=== PATIENT | male | born 1945 | race Caucasian/White ===

== ENCOUNTER → 2017-11-24 08:04 | Outpatient (CLI) | payer MEDICARE, OTHER, SELFPAY ==
[2017-11-24 09:56] LABS: Hematocrit 45.6 % (41-53); Hemoglobin 15.7 g/dL (13.5-17.5); Mean Corpuscular HGB Conc 34.5 % (30-36); Mean Corpuscular Hemoglobin 29.7 PG (26-34); Mean Corpuscular Volume 86.1 fL (80-100); Platelet Count 251 X10^3/uL (150-400); Red Cell Distribution Width 13.6 % (11.6-14.8); White Blood Cell Count 5.7 X10^3/uL (4.5-11.0)
[2017-11-24 10:01] LABS: Alanine Aminotransferase 33 IU/L (21-72); Albumin 4.3 g/dL (3.5-5.0); Albumin Globulin Ratio 1.6 (1.0-2.8); Alkaline Phosphatase 57 U/L (38-126); Amylase 77 U/L (30-110); Aspartate Aminotransferase 27 IU/L (17-59); BUN Creatinine Ratio 16.3 (6-22); Bilirubin Total 0.6 mg/dL (0.2-1.3); Blood Urea Nitrogen 13 mg/dL (9-20); Calcium 9.2 mg/dL (8.4-10.2); Carbon Dioxide 28 mmol/L (22-32); Chloride 99 mmol/L (98-107); Cholesterol 150 mg/dL (140-199); Estimated Glomerular Filt Rate > 60.0 mL/min (>60); Globulin 2.7 g/dL (1.7-4.1); Glucose 90 mg/dL (80-110); HDL Cholesterol 44 mg/dL (40-60); HEMOLYSIS < 15 (0-50); LDL Cholesterol Calculated 94 mg/dL (<100); Lipase 36 U/L (23-300); Potassium 3.9 mmol/L (3.4-5.1); Sodium 137 mmol/L (137-145); Triglycerides 59 mg/dL (35-150)
== END ==
PROVIDERS: Family Provider Family Medicine; PCP Family Medicine; Visit Provider Family Medicine
DX: E78.00 Pure hypercholesterolemia, unspecified (principal); I10 Essential (primary) hypertension; Z79.899 Other long term (current) drug therapy
CPT/HCPCS: 36415; 80053; 80061; 82150; 83690; 85027

== ENCOUNTER → 2018-07-20 07:58 | Outpatient (CLI) | payer MEDICARE, OTHER, SELFPAY ==
[2018-07-20 08:24] LABS: Alanine Aminotransferase 31 IU/L (21-72); Albumin 4.4 g/dL (3.5-5.0); Albumin Globulin Ratio 1.6 (1.0-2.8); Alkaline Phosphatase 54 U/L (38-126); Aspartate Aminotransferase 29 IU/L (17-59); BUN Creatinine Ratio 16.3 (6-22); Bilirubin Total 0.6 mg/dL (0.2-1.3); Blood Urea Nitrogen 13 mg/dL (9-20); Calcium 9.1 mg/dL (8.4-10.2); Carbon Dioxide 27 mmol/L (22-32); Chloride 100 mmol/L (98-107); Cholesterol 150 mg/dL (140-199); Estimated Glomerular Filt Rate > 60.0 mL/min (>60); Globulin 2.8 g/dL (1.7-4.1); Glucose 98 mg/dL (80-110); HDL Cholesterol 46 mg/dL (40-60); HEMOLYSIS < 15 (0-50); LDL Cholesterol Calculated 86 mg/dL (<100); Potassium 4.2 mmol/L (3.4-5.1); Sodium 135 mmol/L (137-145); Total Protein 7.2 g/dL (6.3-8.2); Triglycerides 88 mg/dL (35-150)
[2018-07-20 08:28] LABS: Add Manual Diff / Slide Review NO; Basophils Absolute Auto 0 /uL (0-100); Basophils Percent Auto 0.6 % (0-2); Eosinophils Absolute Auto 400 /uL (0-450); Eosinophils Percent Auto 7.5 % (2-4); Hematocrit 46.9 % (41-53); Lymphocytes Absolute Auto 1800 /uL (1100-4500); Lymphocytes Percent Auto 31.3 % (25-40); Mean Corpuscular HGB Conc 34.1 % (30-36); Mean Corpuscular Hemoglobin 29.9 PG (26-34); Mean Corpuscular Volume 87.5 fL (80-100); Monocytes Absolute Auto 500 /uL (0-900); Monocytes Percent Auto 9.3 % (3-14); Neutrophils Absolute Auto 3000 /uL (1500-7000); Neutrophils Percent Auto 51.3 % (50-75); Platelet Count 236 X10^3/uL (150-400); Red Blood Cell Count 5.36 X10^6/uL (4.5-5.9); Red Cell Distribution Width 13.3 % (11.6-14.8); White Blood Cell Count 5.8 X10^3/uL (4.5-11.0)
[2018-07-20 08:54] LABS: Prostate Specific Antigen Scrn 2.61 ng/mL (0.1-4.0)
== END ==
PROVIDERS: PCP Family Medicine; Visit Provider Family Medicine
DX: E78.00 Pure hypercholesterolemia, unspecified (principal); I10 Essential (primary) hypertension; K85.90 Acute pancreatitis without necrosis or infection, unspecified; Z12.5 Encounter for screening for malignant neoplasm of prostate; Z79.899 Other long term (current) drug therapy
CPT/HCPCS: 36415; 80053; 80061; 85025; G0103

== ENCOUNTER → 2018-12-29 07:07 | Outpatient (CLI) | payer MEDICARE, OTHER, SELFPAY ==
[2018-12-29 09:16] LABS: Alanine Aminotransferase 24 IU/L (21-72); Albumin 4.1 g/dL (3.5-5.0); Albumin Globulin Ratio 1.6 (1.0-2.8); Alkaline Phosphatase 53 U/L (38-126); Aspartate Aminotransferase 28 IU/L (17-59); BUN Creatinine Ratio 17.5 (6-22); Bilirubin Total 0.6 mg/dL (0.2-1.3); Blood Urea Nitrogen 14 mg/dL (9-20); Calcium 9.3 mg/dL (8.4-10.2); Carbon Dioxide 27 mmol/L (22-32); Chloride 100 mmol/L (98-107); Cholesterol 150 mg/dL (140-199); Estimated Glomerular Filt Rate > 60.0 mL/min (>60); Globulin 2.6 g/dL (1.7-4.1); Glucose 88 mg/dL (80-110); HDL Cholesterol 51 mg/dL (40-60); HEMOLYSIS < 15 (0-50); LDL Cholesterol Calculated 85 mg/dL (<100); Potassium 4.7 mmol/L (3.4-5.1); Sodium 136 mmol/L (137-145); Total Protein 6.7 g/dL (6.3-8.2); Triglycerides 68 mg/dL (35-150)
== END ==
PROVIDERS: PCP Family Medicine; Visit Provider Family Medicine
DX: K85.90 Acute pancreatitis without necrosis or infection, unspecified (principal); M12.89 Other specific arthropathies, not elsewhere classified, multiple sites; I10 Essential (primary) hypertension; E78.00 Pure hypercholesterolemia, unspecified; K86.9 Disease of pancreas, unspecified
CPT/HCPCS: 36415; 80053; 80061

== ENCOUNTER → 2020-04-02 11:26 | Outpatient (CLI) | payer MEDICARE, OTHER, SELFPAY ==
[2020-04-02 12:37] LABS: Add Manual Diff / Slide Review NO; Basophils Absolute Auto 0 /uL (0-100); Basophils Percent Auto 0.4 % (0-2); Eosinophils Absolute Auto 200 /uL (0-450); Eosinophils Percent Auto 3.5 % (2-4); Hematocrit 45.3 % (41-53); Hemoglobin 15.4 g/dL (13.5-17.5); Lymphocytes Absolute Auto 1400 /uL (1100-4500); Lymphocytes Percent Auto 21.2 % (25-40); Mean Corpuscular HGB Conc 33.9 % (30-36); Mean Corpuscular Hemoglobin 29.7 PG (26-34); Mean Corpuscular Volume 87.6 fL (80-100); Monocytes Absolute Auto 400 /uL (0-900); Monocytes Percent Auto 6.4 % (3-14); Neutrophils Absolute Auto 4400 /uL (1500-7000); Neutrophils Percent Auto 68.5 % (50-75); Platelet Count 218 X10^3/uL (150-400); Red Blood Cell Count 5.17 X10^6/uL (4.5-5.9); Red Cell Distribution Width 13.8 % (11.6-14.8); White Blood Cell Count 6.5 X10^3/uL (4.5-11.0)
[2020-04-02 13:12] LABS: Alanine Aminotransferase 23 IU/L (<50); Albumin 4.3 g/dL (3.5-5.0); Albumin Globulin Ratio 1.5 (1.0-2.8); Alkaline Phosphatase 62 U/L (38-126); Amylase 83 U/L (30-110); Aspartate Aminotransferase 34 IU/L (17-59); BUN Creatinine Ratio 15.7 (6-22); Bilirubin Total 0.7 mg/dL (0.2-1.3); Blood Urea Nitrogen 13 mg/dL (9-20); Calcium 9.2 mg/dL (8.4-10.2); Carbon Dioxide 30 mmol/L (22-32); Chloride 103 mmol/L (98-107); Cholesterol 158 mg/dL (140-199); Estimated Glomerular Filt Rate > 60.0 mL/min (>60); Globulin 2.9 g/dL (1.7-4.1); Glucose 94 mg/dL (80-110); HDL Cholesterol 46 mg/dL (40-60); HEMOLYSIS < 15 (0-50); LDL Cholesterol Calculated 96 mg/dL (<100); Lipase 42 U/L (23-300); Potassium 4.5 mmol/L (3.4-5.1); Sodium 137 mmol/L (137-145); Total Protein 7.2 g/dL (6.3-8.2); Triglycerides 80 mg/dL (35-150)
[2020-04-02 13:34] LABS: TSH w/ Reflex to FT4 3.38 uIU/mL (0.47-4.68)
== END ==
PROVIDERS: PCP Family Medicine; Referring Provider Family Medicine; Visit Provider Family Medicine
DX: I10 Essential (primary) hypertension (principal); K86.3 Pseudocyst of pancreas; R19.7 Diarrhea, unspecified; E78.00 Pure hypercholesterolemia, unspecified; Z79.899 Other long term (current) drug therapy; N40.0 Benign prostatic hyperplasia without lower urinary tract symptoms
CPT/HCPCS: 36415; 80053; 80061; 82150; 83690; 84443; 85025

== ENCOUNTER → 2020-09-06 09:10 | Outpatient (CLI) | payer MEDICARE, OTHER, SELFPAY ==
[2020-09-06 11:42] LABS: COVID19 -Nasal RAPID Negative (Negative)
== END ==
PROVIDERS: PCP Family Medicine; Visit Provider Specialist
DX: Z20.822 Contact with and (suspected) exposure to COVID-19 (principal)
CPT/HCPCS: 87635; C9803

== ENCOUNTER 2020-09-07 08:03 | Day surgery (SDC) | payer MEDICARE, OTHER, SELFPAY ==
--- NOTE | 2020-09-07 | PATH_ITS ---
[facility] Accession Number: [id number] . 01 Material submitted: . PART A: colon - ASCENDING COLON POLYP PART B: colon - POLYPS AT 25CM (3) . 02 Diagnosis: A. Ascending Colon Polyp, Biopsy: Sessile serrated adenoma. . B. Colon Polyps at 25 cm, Biopsies: Fragments of tubular adenoma and fragments of colonic mucosa with moderate active colitis, most consistent with inflammatory polyp (three polyps removed). V 09/11/2020 1213 Local . 02 Electronically signed: . Surjit Fuentes MD, PhD, Pathologist NPI- [id number] . 01 Gross description: . A. The specimen is received in formalin, labeled ascending colon polyp, and consists of multiple souza-pink fragments of soft tissue measuring 1.5 x 1.2 x 0.3 cm in aggregate. The specimen is filtered and entirely submitted in cassette A1. B. The specimen is received in formalin, labeled polyp at 25 cm, and consists of multiple souza-pink fragments of soft tissue measuring 1.0 x 1.0 x 0.2 cm in aggregate. The specimen is filtered and entirely submitted in cassette B1. ([id number]) /Raquel 09/08/2020 1452 Local . 02 Pathologist provided ICD-10: D12.2, D12.6, K51.40 . 02 CPT . 942661, 118898 Performed at: 01 [facility] [address] [place] [address], [place], [place] [id number] MD Ashok Giles MD Phone: [phone] Performed at: 02 [facility] [address] [place], [place] [id number] Swenson MD Phone: [phone]
[2020-09-07 08:32] VITALS: BP 135/71; PULSE 69; RESP 14; TEMP 36.4; O2SAT 97; BMI 25.5
[2020-09-07] MEDS: LACTATED RINGERS 1,000 ML 200 ML IV (08:32)
--- NOTE | 2020-09-07 09:45 | PM.HP.1 ---
History of Present Illness History of Present Illness Date Patient Seen: 09/07/20 Time Patient Seen: 09:45 Chief complaint: SCREENING COLONOSCOPY Narrative: Patient is a gentleman who had polyps removed at his last colonoscopy. Is been 5 years since his last exam. He is here for screening exam. He has noticed that he has been having very soft but not liquid stool for the last 2 years. Patient History Family & Social History Social History: household members spouse Tobacco & Substance use: Smoking Status Former smoker alcohol intake current alcohol intake frequency 0-2 drinks per day Substance Use Type does not use Meds Home Medications and Allergies Home Medications Medication Instructions Recorded Confirmed Type multivitamin [Multiple Vitamins] 1 tab PO QDAY #0 06/12/16 09/07/20 History sodium,potassium,mag sulfates 17.5 177 ml PO DAILY #354 ml 08/17/20 09/07/20 Rx gram-3.13 gram-1.6 gram oral soln acetaminophen [Tylenol] 325 mg PO QID PRN 09/07/20 09/07/20 History atorvastatin 10 mg PO DAILY 09/07/20 09/07/20 History Allergies Allergy/AdvReac Type Severity Reaction Status Date / Time No Known Drug Allergies Allergy Verified 09/07/20 08:28 Review of Systems Review of Systems ROS: Yes All systems reviewed with the patient and are negative except as otherwise documented Exam Vital Signs (past 8 hours): - 09/07/20 08:32 Temperature 97.5 F L Pulse Rate 69 Respiratory Rate 14 Blood Pressure 135/71 Pulse Oximetry 97 Oxygen Delivery Method Room Air Narrative Exam Narrative: Pleasant cooperative patient no apparent distress. Lungs are clear to auscultation. No rales or rhonchi. Heart regular rate and rhythm no murmur gallop. Abdomen is soft nontender without mass. No obvious hernias. Patient is alert and oriented x3. Assessment & Plan Assessment & Plan narrative: The patient for a screening colonoscopy. I have discussed the procedure with them. Risks of bleeding, perforation which would necessitate major operation, failure to find remove all lesions, the potential tattoo were all discussed. All questions were answered. They wished to proceed.
--- NOTE | 2020-09-07 09:47 | PM.PREOP ---
Pre-operative Note COVID-19 COVID-19 status: Negative Result date/Date tested (Pos, Neg/Pending): 09/06/20 Interval Note History & Physical reviewed/Exam performed by Physician: Yes Changes to H&P: No ASA Class (for procedural sedation): I
--- NOTE | 2020-09-07 10:55 | PM.OP.ENDO ---
Operative Date/Time/Diagnoses Date of procedure: 09/07/20 Time of procedure: 10:55 Pre-op diagnosis: Screening exam. Last exam 5 years ago. Personal history of polyps. Post-op diagnosis: same (Multiple polyps. Sigmoid diverticulosis occasional.) Procedure & Clinicians Study performed: Colonoscopy with hot polypectomy and cold biopsy Same procedure as scheduled: Yes Indications: Screening in high risk patient Surgeon: Chris Rizzo Procedure Notes SCOAP/Timeout: Performed Procedure in detail: The patient was placed in the left lateral decubitus position and underwent IV sedation directed by the surgeon consisting of fentanyl and Versed. Digital exam was unremarkable. Prostate was not enlarged.. The scope was inserted and advanced through the rectum into the sigmoid, descending, transverse, and ascending colon. Pressure was applied to make our way into the cecum.. The cecum was reached identified by the ileocecal valve and the appendiceal opening. . The scope was gradually brought out. About 4 or 5 cm outside the ileocecal valve there was a rather large flat polyp which was removed in pieces. I cauterized edges. Additional Polyps were found at 25 cm from the anal verge. Cold biopsy forceps was used removed 2 and an additional 1 was snared.. The scope ultimately was retroflexed in the rectum. The appearance was normal. The scope was removed and the patient tolerated the procedure well. Prep was very good Scope withdrawal time: 8 minutes((39 total) Sedation minutes: 52 Findings: diverticulosis and polyp Specimen(s): other (Polyps) Complications: none Post-procedure Recommendations: Colonscopy in 1 year (To ensure flat lesion in the ascending colon was completely removed.) Follow up: as needed Disposition: PACU
[2020-09-07] MEDS: fentaNYL 250 MCG/5 ML INJ IV (10:56)
[2020-09-07] MEDS: MIDAZOLAM 5 MG/5 ML VIAL IV (10:57)
[2020-09-07 11:03] VITALS: BP 122/59; PULSE 60; RESP 13; O2SAT 98
[2020-09-07 11:12] VITALS: BP 143/85; PULSE 85; RESP 10; TEMP 36.9; O2SAT 98
--- NOTE | 2020-09-07 11:18 | SUR.PHASEI ---
1058 - Admitted to PACU after colonscopy with sedation. Report from THADDEUS Leal.
[2020-09-07 11:27] VITALS: BP 141/84; PULSE 79; RESP 16; TEMP 36.9; O2SAT 97
--- NOTE | 2020-09-07 11:29 | SUR.PHASEII ---
d/c instructions done by THADDEUS Roman. Pt ready to go, called, tolerating liquids, belly soft, left unit in stable condition.
== END 2020-09-07 11:30 | disposition home or self-care (01) ==
PROVIDERS: PCP Family Medicine; Referring Provider Specialist; Visit Provider Specialist
PROC: 0DJD8ZZ Inspection of Lower Intestinal Tract, Via Natural or Artificial Opening Endoscopic (ICD-10-PCS; CPT 45378; principal; 2020-09-07 09:15)
DX: Z12.11 Encounter for screening for malignant neoplasm of colon (principal); Z86.010 Personal history of colon polyps; K57.30 Diverticulosis of large intestine without perforation or abscess without bleeding; D12.6 Benign neoplasm of colon, unspecified
CPT/HCPCS: 45385; 45380; 99152; 99153; J2250; J3010

== ENCOUNTER → 2020-12-31 14:40 | Outpatient (CLI) | payer MEDICARE, OTHER, SELFPAY ==
--- NOTE | 2020-12-31 | DI.RAD.S_ITS ---
PROCEDURE: XR CHEST 2V INDICATIONS: chest pain TECHNIQUE: 2 views of the chest were acquired. COMPARISON: [facility], , CHEST 2 VIEW, 07/06/2016, 16:31. FINDINGS: Surgical changes and devices: None. Lungs and pleura: Lungs are clear. No pleural effusions or pneumothorax. Mediastinum: Mediastinal contours are normal. Heart size is normal. Bones and chest wall: No suspicious bony abnormalities. Soft tissues appear unremarkable. IMPRESSION: No source for chest pain identified radiographically. Dictated by: Sauol So RR Interpreted: Cj De Leon MD on 12/31/2020 at 16:57 Transcribed by: RUSTAM on 12/31/2020 at 16:58 Approved by: Cj De Leon M.D. on 12/31/2020 at 17:14
== END ==
PROVIDERS: PCP Family Medicine; Referring Provider Family Medicine; Visit Provider Family Medicine
DX: I10 Essential (primary) hypertension (principal); R07.9 Chest pain, unspecified
CPT/HCPCS: 71046

== ENCOUNTER → 2021-01-17 12:42 | Outpatient (CLI) | payer MEDICARE, OTHER, SELFPAY ==
--- NOTE | 2021-01-17 12:46 | DI.CT.S_ITS ---
PROCEDURE: CT HEAD/BRAIN WO CON INDICATIONS: Dizziness and giddiness TECHNIQUE: Noncontrast 4.5 mm thick angled axial sections acquired from the foramen magnum to the vertex, with coronal and sagittal reformats. For radiation dose reduction, the following was used: automated exposure control, adjustment of mA and/or kV according to patient size. COMPARISON: [facility], , MRI BRAIN (IAC) W/WO CONTRAST, 09/23/2005, 7:52. FINDINGS: Image quality: Excellent. CSF spaces: Basal cisterns are patent. No extra-axial fluid collections. The ventricles are symmetric in size and shape. Brain: No intracranial bleeds or masses. There is cerebral volume loss for age, with resultant ventricular and sulcal prominence. There are periventricular and deep white matter chronic small vessel ischemic changes. Scattered lacunar infarcts are seen. There is intracranial internal carotid artery atherosclerosis. Skull and face: Calvarium and visualized facial bones appear intact, without suspicious lesions. Sinuses: Visualized sinuses and mastoids are clear. IMPRESSION: Unremarkable intracranial study for age, without an imaging explanation found for the patient's presenting history. If it would be helpful for clinical management decision making, please consider a dedicated brain MRI (without and with contrast) for further evaluation (assuming that there is no contraindication). Dictated by: Delvin Sheridan M.D. on 01/17/2021 at 12:13 Approved by: Delvin Sheridan M.D. on 01/17/2021 at 12:14
--- NOTE | 2021-01-17 12:47 | DI.US.S_ITS ---
PROCEDURE: US CAROTID DOPPLER BI INDICATIONS: DIZZINESS TECHNIQUE: Color and pulse Doppler interrogation was performed of both carotid systems, with image documentation and velocity measurements. COMPARISON: [facility], US, CAROTID ARTERY DOPPLER BILAT, 02/20/2012, 10:50. [facility], CT, CT HEAD/BRAIN WO CON, 01/17/2021, 13:06. FINDINGS: Stenosis calculations are based on SRU (Society of Radiologists in Ultrasound) criteria. The flow velocities and the arterial waveforms are normal within both carotid arterial systems. A small amount of atherosclerotic plaque is seen on both sides. The estimated degree of internal carotid artery stenosis is less than 50%. Antegrade flow is confirmed within both vertebral arteries. IMPRESSION: No hemodynamically significant stenosis is seen. No significant change is seen. Dictated by: Delvin Sheridan M.D. on 01/17/2021 at 12:40 Approved by: Delvin Sheridan M.D. on 01/17/2021 at 12:41
== END ==
PROVIDERS: PCP Family Medicine; Referring Provider Family Medicine; Visit Provider Family Medicine
DX: R42 Dizziness and giddiness (principal)
CPT/HCPCS: 70450; 93880

== ENCOUNTER → 2021-01-25 08:28 | Outpatient (CLI) | payer MEDICARE, OTHER, SELFPAY ==
--- NOTE | 2021-01-25 | DI.MRI.S_ITS ---
PROCEDURE: MR HEAD/BRAIN WO/W CON INDICATIONS: Dizziness and giddiness TECHNIQUE: Noncontrast axial T1 spin echo, axial T2 fast spin echo, sagittal and axial FLAIR, coronal T2 fast spin echo, axial gradient echo, axial diffusion and ADC through the brain. After the administration of contrast, axial and coronal T1 spin echo with fat saturation through the brain. COMPARISON: [facility], RG, MRI BRAIN (IAC) W/WO CONTRAST, 09/23/2005, 7:52. [facility], CT, CT HEAD/BRAIN WO CON, 01/17/2021, 13:06. FINDINGS: Image quality: Excellent. CSF spaces: Basal cisterns are patent. No extra-axial fluid collections. Ventricles are normal in size and shape. Brain: No midline shift. No intracranial bleeds or masses. No abnormal intracranial enhancement. There is cerebral volume loss for age. There is periventricular white matter chronic small vessel ischemic change. The brainstem appears normal. Diffusion-weighted images demonstrate no acute ischemic insults. No chronic ischemic insults. Normal intravascular flow voids are present. Skull and face: Calvarial marrow is normal in signal. Orbits appear normal. Sinuses: Mild mucosal thickening is seen involving the maxillary sinuses. Mild mucosal thickening is also seen within the ethmoid air cells. Minimal mucosal thickening is seen elsewhere within the paranasal sinuses. No abnormal fluid is seen within the mastoid air cells. IMPRESSION: No masses or abnormal enhancement can be seen. No findings of acute or subacute infarction can be seen. Note is made of age-appropriate brain parenchymal volume loss and chronic small vessel ischemic changes. Dictated by: Delvin Sheridan M.D. on 01/25/2021 at 9:53 Approved by: Delvin Sheridan M.D. on 01/25/2021 at 9:55
== END ==
PROVIDERS: PCP Family Medicine; Referring Provider Family Medicine; Visit Provider Family Medicine
DX: R42 Dizziness and giddiness (principal); R90.89 Other abnormal findings on diagnostic imaging of central nervous system
CPT/HCPCS: 70553

== ENCOUNTER → 2022-01-23 09:15 | Outpatient (CLI) | payer MEDICARE, OTHER, SELFPAY ==
[2022-01-23 11:28] LABS: COVID19 -Nasal RAPID Negative (Negative)
== END ==
PROVIDERS: PCP Family Medicine; Visit Provider Surgery
DX: Z01.812 Encounter for preprocedural laboratory examination (principal); Z20.822 Contact with and (suspected) exposure to COVID-19
CPT/HCPCS: 87635; C9803

== ENCOUNTER 2022-01-24 07:24 | Day surgery (SDC) | payer MEDICARE, OTHER, SELFPAY ==
--- NOTE | 2022-01-24 | PATH_ITS ---
[facility] Accession Number: [id number] . 01 Material submitted: . colon - CECAL POLYPS . 01 Diagnosis: Cecum, Polyps, Biopsies: Multiple fragments of enteric mucosa with sumucosal mature adipose tissue, consistent with benign lipoma. Additional levels were examined. Negative for atypia, epithelial dysplasia, or malignancy. [facility] 01/31/2022 1327 Local . 01 Electronically signed: . Glendy Swenson MD, Pathologist NPI- [id number] . 01 Gross description: . CECAL POLYPS: Received in formalin are multiple fragment(s) of souza, soft tissue measuring 0.1 x 0.1 x 0.1 cm to 0.7 x 0.6 x 0.5 cm submitted entirely in 1 cassette(s) /REYES 01/29/2022 1937 Local . 01 Pathologist provided ICD-10: K63.5, Z86.010 . 01 CPT . 450338 Performed at: 01 [facility] [address] [place] [address] [address], [place], [place] [id number] MD Ashok Giles MD Phone: [phone]
[2022-01-24 07:48] VITALS: BP 133/80; PULSE 78; RESP 16; TEMP 36.3; O2SAT 98; BMI 26.6
[2022-01-24] MEDS: LACTATED RINGERS 1,000 ML 100 ML IV ×2 (08:00→10:41)
[2022-01-24] MEDS: fentaNYL 100 MCG/2 ML INJ IV (09:02)
[2022-01-24] MEDS: MIDAZOLAM 5 MG/5 ML VIAL IV (09:02)
--- NOTE | 2022-01-24 09:09 | PM.HP.1 ---
History of Present Illness History of Present Illness Chief complaint: DX COLONOSCOPY Narrative: Mr. Sexton is a 76-year-old relatively healthy male who had a large cecal polyp removed 1 year ago he also had some small rectal polyps both of which were adenomatous. He has a 44-year-old daughter who was recently diagnosed with colon cancer. He denies any other symptoms no bleeding regular bowel movements. He had no issues with his previous colonoscopy other than relating that he ?goes under anesthesia easily? Patient History Surgical History H/O vasectomy History of total hip replacement Hx of tonsillectomy Family & Social History Social History: household members spouse Tobacco & Substance use: Smoking Status Former smoker alcohol intake current alcohol intake frequency 0-2 drinks per day Substance Use Type does not use Meds Home Medications and Allergies Home Medications Medication Instructions Recorded Confirmed Type multivitamin (Multiple Vitamins 1 tab PO QDAY ##0 06/12/16 01/24/22 History tablet) acetaminophen 325 mg capsule 325 mg PO QID PRN Headache 09/07/20 01/24/22 History (Tylenol) atorvastatin 10 mg tablet 10 mg PO DAILY 09/07/20 01/24/22 History amlodipine 5 mg tablet See Rx Instructions .Route .COMPLEX 01/24/22 01/24/22 History Allergies Allergy/AdvReac Type Severity Reaction Status Date / Time No Known Drug Allergies Allergy Verified 01/24/22 07:44 Exam Vital Signs (past 8 hours): - 01/24/22 07:48 Temperature 97.4 F L Pulse Rate 78 Respiratory Rate 16 Blood Pressure 133/80 Pulse Oximetry 98 Oxygen Delivery Method Room Air Oxygen Delivery Method Room Air Const General: cooperative, healthy appearing and comfortable [facility] Head: normal to inspection Eyes General: appearance normal, both eyes and all related structures Neck Neck: normal visual inspection Resp Effort & Inspection: normal respiratory effort and able to speak in complete sentences Cardio Rhythm: regular rhythm GI Inspection: normal to inspection Skin General: no rashes or lesions noted Extrem General: normal to inspection Assessment & Plan Assessment and plan (1) Screening for colon cancer: Status: Acute Plan I discussed risks benefits and alternatives as well as the results from his previous colonoscopy. Mr. Sexton understood the risks and would like to proceed today. Time Spent With Patient Time with patient: less than 30 minutes Critical Care time: I spent a total of [] minutes of critical care time on this patient's care today; this time is exclusive of procedural time.
[2022-01-24 10:56] VITALS: BP 130/91; PULSE 74; RESP 16; TEMP 37.2; O2SAT 96
[2022-01-24 10:58] VITALS: BP 130/71; PULSE 711; RESP 16; O2SAT 98
[2022-01-24 11:03] VITALS: BP 125/72; PULSE 71; RESP 16; TEMP 36.7; O2SAT 97
[2022-01-24 11:13] VITALS: BP 125/72; PULSE 71; RESP 16; TEMP 36.7; O2SAT 100
[2022-01-24 11:35] VITALS: BP 144/74; PULSE 69; RESP 18; O2SAT 97
--- NOTE | 2022-01-24 12:01 | PM.OP.COLON ---
Operative Date/Time/Diagnoses Date of procedure: 01/24/22 Pre-op diagnosis: Screening, follow-up polypectomy Post-op diagnosis: same Procedure & Clinicians Study performed: Colonoscopy and biopsy Same procedure as scheduled: Yes Surgeon: My Goel Procedure Notes Procedure in detail: Mr. Sexton was taken to the endoscopy suite and placed in left lateral decubitus position. Time-out was performed conscious sedation was provided with a total of 125 mcg of fentanyl and 6 mg of Versed over the course of the procedure. A digital rectal exam was performed and normal the scope was introduced and advanced. Some abdominal pressure was required to complete the hepatic flexure. The cecum was reached and photographs were taken of the appendiceal orifice. Immediately adjacent to the ileocecal valve there was a large sessile polyp seen there. Based on measurement against the size of the the loop it was 1.3 cm in size. I used a hot polypectomy snare to remove this lesion in several pieces. I used electrocautery for hemostasis. After I had taken 4 separate pieces, I used the biopsy forceps to remove some areas around the edge in addition. Of note in the ascending colon on the way in to the cecum there was a small polyp, which I did not see clearly on the way out. Withdrawal time was 60 minutes and included the time spent removing the cecal polyp. However extra care was taken at around 25 cm at the site of previous biopsies and no additional polyps were seen at this site. Due to the size of the cecal polyp and his history I think we should return in 1 year to check this polyp again. For this reason I did not use more anesthetic time to seek the other small polyp I saw in the ascending colon. Scope withdrawal time: 61 Sedation minutes: 90 Findings: divertiulosis and polyp(s) Specimen(s): other (Cecal polyp) Post-procedure Recommendations: Colonoscopy in 1 year Disposition: PACU
== END 2022-01-24 11:35 | disposition home or self-care (01) ==
PROVIDERS: PCP Family Medicine; Referring Provider Surgery; Visit Provider Surgery
PROC: 0DJD8ZZ Inspection of Lower Intestinal Tract, Via Natural or Artificial Opening Endoscopic (ICD-10-PCS; CPT 45378; principal; 2022-01-24 08:45)
DX: Z12.11 Encounter for screening for malignant neoplasm of colon (principal); Z86.010 Personal history of colon polyps; Z80.0 Family history of malignant neoplasm of digestive organs; K57.30 Diverticulosis of large intestine without perforation or abscess without bleeding; D17.5 Benign lipomatous neoplasm of intra-abdominal organs
CPT/HCPCS: 45385; 99152; 99153; J2250; J3010

== ENCOUNTER → 2022-05-20 07:22 | Outpatient (CLI) | payer MEDICARE, OTHER, SELFPAY ==
[2022-05-20 08:04] LABS: Add Manual Diff / Slide Review NO; Basophils Absolute Auto 0 /uL (0-100); Basophils Percent Auto 0.6 % (0-2); Eosinophils Absolute Auto 400 /uL (0-450); Eosinophils Percent Auto 5.6 % (2-4); Hematocrit 44.2 % (41-53); Hemoglobin 15.1 g/dL (13.5-17.5); Lymphocytes Absolute Auto 1800 /uL (1100-4500); Lymphocytes Percent Auto 27.5 % (25-40); Mean Corpuscular HGB Conc 34.2 % (30-36); Mean Corpuscular Hemoglobin 29.2 PG (26-34); Mean Corpuscular Volume 85.4 fL (80-100); Monocytes Absolute Auto 500 /uL (0-900); Monocytes Percent Auto 8.4 % (3-14); Neutrophils Absolute Auto 3700 /uL (1500-7000); Neutrophils Percent Auto 57.9 % (50-75); Platelet Count 243 X10^3/uL (150-400); Red Blood Cell Count 5.17 X10^6/uL (4.5-5.9); Red Cell Distribution Width 13.5 % (11.6-14.8); White Blood Cell Count 6.4 X10^3/uL (4.5-11.0)
[2022-05-20 08:31] LABS: Alanine Aminotransferase 27 IU/L (<50); Alkaline Phosphatase 67 U/L (38-126); Amylase 78 U/L (30-110); Aspartate Aminotransferase 30 IU/L (17-59); Bilirubin Total 0.6 mg/dL (0.2-1.3); Blood Urea Nitrogen 12 mg/dL (9-20); Calcium 8.9 mg/dL (8.4-10.2); Carbon Dioxide 29 mmol/L (22-32); Chloride 101 mmol/L (98-107); Cholesterol 146 mg/dL (140-199); Estimated Glomerular Filt Rate > 60 mL/min (>60); Glucose 93 mg/dL (80-110); HDL Cholesterol 39 mg/dL (40-60); LDL Cholesterol Calculated 91 mg/dL (<100); Lipase 61 U/L (23-300); Magnesium 2.1 mg/dL (1.6-2.3); Potassium 4.4 mmol/L (3.4-5.1); Sodium 136 mmol/L (137-145); Total Protein 7.3 g/dL (6.3-8.2); Triglycerides 79 mg/dL (35-150)
[2022-05-20 08:47] LABS: Vitamin D 25 Hydroxy (D3) 44.9 ng/mL (30.0-100.0)
[2022-05-20 09:00] LABS: Thyroid Stimulating Hormone 5.39 uIU/mL (0.47-4.68)
[2022-05-21 03:14] LABS: Vitamin B12 577 pg/mL (239-931)
[2022-05-23 15:57] LABS: Albumin 4.2 g/dL (3.5-5.0); Albumin Globulin Ratio 1.4 (1.0-2.8); Globulin 3.1 g/dL (1.7-4.1); HEMOLYSIS 15 (0-50)
== END ==
PROVIDERS: PCP Family Medicine; Referring Provider Family Medicine; Visit Provider Family Medicine
DX: I10 Essential (primary) hypertension (principal); Z12.5 Encounter for screening for malignant neoplasm of prostate; I48.91 Unspecified atrial fibrillation; E78.00 Pure hypercholesterolemia, unspecified; K86.3 Pseudocyst of pancreas; M12.89 Other specific arthropathies, not elsewhere classified, multiple sites; Z79.899 Other long term (current) drug therapy
CPT/HCPCS: 36415; 80053; 80061; 82150; 82306; 82607; 83690; 83735; 84153; 84443; 85025; G0103

== ENCOUNTER → 2022-06-17 09:57 | Outpatient (CLI) | payer MEDICARE, OTHER, SELFPAY ==
[2022-06-17 11:23] LABS: T4 Total Thyroxine 6.48 ug/dL (5.5-11.0); T7 (Free Thyroxine Index) 2.27 (1.65-3.89)
[2022-06-17 11:37] LABS: Thyroid Stimulating Hormone 3.95 uIU/mL (0.47-4.68)
== END ==
PROVIDERS: PCP Family Medicine; Referring Provider Family Medicine; Visit Provider Family Medicine
DX: I10 Essential (primary) hypertension (principal); Z79.899 Other long term (current) drug therapy; E78.00 Pure hypercholesterolemia, unspecified; K85.90 Acute pancreatitis without necrosis or infection, unspecified
CPT/HCPCS: 36415; 84436; 84443; 84479

== ENCOUNTER 2022-10-26 18:51 | Inpatient (IN) | payer MEDICARE, OTHER, SELFPAY ==
[2022-10-26 19:18] VITALS: BP 136/81; PULSE 113; RESP 20; TEMP 36.9; O2SAT 98; BMI 26.6
[2022-10-26] MEDS: ONDANSETRON 4 MG/2 ML INJ IV (19:45)
[2022-10-26 19:49] LABS: Add Manual Diff / Slide Review NO; Basophils Absolute Auto 0 /uL (0-100); Basophils Percent Auto 0.3 % (0-2); Eosinophils Absolute Auto 100 /uL (0-450); Eosinophils Percent Auto 0.9 % (2-4); Hematocrit 46.8 % (41-53); Hemoglobin 16.3 g/dL (13.5-17.5); Lymphocytes Absolute Auto 1700 /uL (1100-4500); Lymphocytes Percent Auto 11.5 % (25-40); Mean Corpuscular HGB Conc 34.9 % (30-36); Mean Corpuscular Hemoglobin 29.6 PG (26-34); Mean Corpuscular Volume 84.8 fL (80-100); Monocytes Absolute Auto 1000 /uL (0-900); Monocytes Percent Auto 6.6 % (3-14); Neutrophils Absolute Auto 11600 /uL (1500-7000); Neutrophils Percent Auto 80.7 % (50-75); Platelet Count 280 X10^3/uL (150-400); Red Blood Cell Count 5.52 X10^6/uL (4.5-5.9); Red Cell Distribution Width 13.8 % (11.6-14.8); White Blood Cell Count 14.4 X10^3/uL (4.5-11.0)
--- NOTE | 2022-10-26 19:57 | PC.NURSE ---
After starting the IV, patient became nauseous went to [facility] for patient and when returned patient was ambulating to the bathroom, unsteady on feet and diaphoretic. Pt reports feeling dizzy. Had patient sit on toilet to give the sample, Upon returning to chair checked, stated feeling better but still alittle dizzy. BP at this time 101/54. Provider aware. Pt denies any previous similar responses to lab draw or IV starts.
[2022-10-26 20:01] LABS: Alanine Aminotransferase 27 IU/L (<50); Albumin 4.2 g/dL (3.5-5.0); Albumin Globulin Ratio 1.4 (1.0-2.8); Alkaline Phosphatase 69 U/L (38-126); Aspartate Aminotransferase 36 IU/L (17-59); BUN Creatinine Ratio 20.8 (6-22); Bilirubin Total 0.7 mg/dL (0.2-1.3); Blood Urea Nitrogen 15 mg/dL (9-20); Calcium 9.4 mg/dL (8.4-10.2); Carbon Dioxide 22 mmol/L (22-32); Chloride 102 mmol/L (98-107); Estimated Glomerular Filt Rate > 60 mL/min (>60); Globulin 3.1 g/dL (1.7-4.1); Glucose 114 mg/dL (80-110); Potassium 3.9 mmol/L (3.4-5.1); Sodium 133 mmol/L (137-145); Total Protein 7.3 g/dL (6.3-8.2)
[2022-10-26 20:08] LABS: HEMOLYSIS 45 (0-50)
[2022-10-26 20:23] VITALS: BP 140/78; PULSE 87; RESP 16; O2SAT 95
[2022-10-26 20:28] LABS: Lipase 19714 U/L (23-300)
--- NOTE | 2022-10-26 20:33 | DI.US.S_ITS ---
PROCEDURE: US ABDOMEN LIMITED INDICATIONS: RUQ PAIN, PANCREATITIS TECHNIQUE: Real-time focused scanning was performed of the abdomen, with image documentation. COMPARISON: MR, MR ABD WO CON, 11/12/2016, 9:55. CT, ABDOMEN WITH CONTRAST, 09/16/2016, 10:43. FINDINGS: Liver measures 16.6 cm. Left lobe is not visualized and difficult to evaluate. Sludge is present within the gallbladder. Wall thickness measures 3.4 mm. Simple right renal cyst is present. Pancreas is visualized. IMPRESSION: Pancreas is not visualized. Prominence of the gallbladder wall with sludge. Developing cholecystitis cannot be definitively excluded. Dictated by: Wanda Pinon M.D. on 10/26/2022 at 21:37 Approved by: Wanda Pinon M.D. on 10/26/2022 at 21:39
--- NOTE | 2022-10-26 20:39 | ED.ABDPAIN ---
HPI - Abdominal Pain General Chief Complaint: Abdominal Pain Stated Complaint: stomach cramps R/side back pain Time Seen by Provider: 10/26/22 20:33 Source: patient Mode of arrival: Ambulatory History of Present Illness HPI narrative: Patient is a healthy 77-year-old male history of hypertension hyperlipidemia previous history of pancreatitis in 2017 presents today with severe abdominal pain and right upper quadrant pain. Started about 130. Some nausea. He reports that he drinks 1 glass of wine daily he quit drinking beer after his pancreatitis attack in 2017. No fever chills chest pain shortness breath. Unfortunately his is currently at [facility] with a hip fracture. Related Data Home Medications Medication Instructions Recorded Confirmed multivitamin (Multiple Vitamins 1 tab PO QDAY ##0 06/12/16 10/26/22 tablet) acetaminophen 325 mg capsule 325 mg PO QID PRN Headache 09/07/20 10/26/22 (Tylenol) atorvastatin 10 mg tablet 10 mg PO DAILY 09/07/20 10/26/22 amlodipine 5 mg tablet (Norvasc) See Rx Instructions .Route .COMPLEX 01/24/22 10/27/22 aspirin 81 mg tablet 81 mg PO DAILY 10/26/22 10/26/22 Allergies Allergy/AdvReac Type Severity Reaction Status Date / Time No Known Drug Allergies Allergy Verified 10/26/22 19:23 Review of Systems Review of Systems ROS Unobtainable: All systems reviewed & are unremarkable except as noted in HPI and below Patient History Surgical History H/O vasectomy History of total hip replacement Hx of tonsillectomy Social History household members: spouse Smoking Status: Former smoker alcohol intake: current Smoking Status: Former smoker alcohol intake frequency: 0-2 drinks per day Substance Use Type: does not use Exam Initial Vital Signs Initial Vital Signs: Vital Signs Temperature 98.4 F 10/26/22 19:18 Pulse Rate 113 H 10/26/22 19:18 Respiratory Rate 20 10/26/22 19:18 Blood Pressure 136/81 10/26/22 19:18 Pulse Oximetry 98 10/26/22 19:18 Oxygen Delivery Method Room Air 10/26/22 19:18 GENERAL: Alert 77-year-old male appears uncomfortable HEENT: Head atraumatic,EOMI, pupils reactive, face symmetric, [moist] mucous membranes CARDIOVASCULAR: Regular rate and rhythm without murmurs, rubs or gallops. RESPIRATORY: Breath sounds equal bilaterally, no wheezes rales or rhonchi. ABDOMEN: Soft, tender epigastric right upper quadrant pain no guarding EXTREMITIES: Normal range of motion, no clubbing or edema. Neurovascularly intact NEUROLOGICAL: Alert and oriented x4. SKIN: Warm, dry, no laceration, no petechiae, no rashes or lesions. Course Orders Ordered: ED Orders 10/26/22 19:24 EKG-12 Lead Stat 10/26/22 19:40 Complete Blood Count AUTO DIFF Stat Comprehensive Metabolic Panel Stat Lipase Stat 10/26/22 20:33 US abdomen limited Stat 10/26/22 21:08 CT abdomen pelvis w con Stat Enoxaparin Sodium (Enoxaparin 40 Mg/0.4 Ml Syringe) 40 mg SUBCUT DAILY MARCELA Hydromorphone HCl (Hydromorphone 0.5 Mg Inj) 0.5 mg IV Q2H PRN PRN Reason: Pain, Moderate (4-6) Last Admin: 10/27/22 03:47 Dose: 0.5 mg Documented By: SARAH Sodium Chloride (Normal Saline 0.9%) 1,000 mls @ 150 mls/hr IV CONT MARCELA Last Admin: 10/26/22 23:48 Dose: 150 mls/hr Documented By: SARAH Naloxone HCl (Naloxone 0.4 Mg/Ml Vial) 0.2 mg IV Q2MIN PRN PRN Reason: Opiate Reversal Ondansetron HCl (Ondansetron 4 Mg/2 Ml Inj) 4 mg IV Q8HR PRN PRN Reason: Nausea And Vomiting Last Admin: 10/27/22 01:21 Dose: 4 mg Documented By: SARAH Oxycodone HCl (Oxycodone Ir 5 Mg Tablet) 5 mg PO Q3H PRN PRN Reason: Pain, Moderate (4-6) Last Admin: 10/26/22 23:44 Dose: 5 mg Documented By: SARAH Discontinued Medications Hydromorphone HCl (Hydromorphone 0.5 Mg Inj) 0.5 mg IV NOW ONE Stop: 10/26/22 20:34 Last Admin: 10/26/22 20:42 Dose: 0.5 mg Documented By: DEVI Hydromorphone HCl (Hydromorphone 0.5 Mg Inj) 0.5 mg IV Q6H PRN PRN Reason: Pain, Severe (7-10) Hydromorphone HCl (Hydromorphone 0.5 Mg Inj) 0.5 mg IV Q4H PRN PRN Reason: Pain, Moderate (4-6) Last Admin: 10/27/22 01:21 Dose: 0.5 mg Documented By: SARAH Sodium Chloride (Normal Saline 0.9%) 1,000 mls @ 1,000 mls/hr IV BOLUS ONE Stop: 10/26/22 21:32 Last Infusion: 10/26/22 21:45 Dose: 0 mls/hr Documented By: Admin: 10/26/22 20:43 Dose: 1,000 mls/hr Documented By: DEVI Ondansetron HCl (Ondansetron 4 Mg Odt) 4 mg PO NOW PRN PRN Reason: Nausea And Vomiting Ondansetron HCl (Ondansetron 4 Mg/2 Ml Inj) 4 mg IV NOW PRN PRN Reason: Nausea And Vomiting Last Admin: 10/26/22 19:45 Dose: 4 mg Documented By: ROSS Vital Signs Vital signs: Vital Signs - 8 hr 10/26/22 20:23 Pulse Rate 87 Respiratory Rate 16 Blood Pressure 140/78 Pulse Oximetry 95 Oxygen Delivery Method Room Air MDM - Abdominal Pain Lab Data 10/26/22 19:40 10/26/22 19:40 Labs: Lab Results 10/26/22 10/26/22 10/26/22 Range/Units 19:40 19:40 19:40 WBC 14.4 H (4.5-11.0) X10^3/uL RBC 5.52 (4.5-5.9) X10^6/uL Hgb 16.3 (13.5-17.5) g/dL Hct 46.8 (41-53) % MCV 84.8 (80-100) fL MCH 29.6 (26-34) PG MCHC 34.9 (30-36) % RDW 13.8 (11.6-14.8) % Plt Count 280 (150-400) X10^3/uL Neut % (Auto) 80.7 H (50-75) % Lymph % (Auto) 11.5 L (25-40) % [place] % (Auto) 6.6 (3-14) % Eos % (Auto) 0.9 L (2-4) % Baso % (Auto) 0.3 (0-2) % Neut # (Auto) 65326 H (8839-5857) /uL Lymph # (Auto) 1700 (5882-3516) /uL [place] # (Auto) 1000 H (0-900) /uL Eos # (Auto) 100 (0-450) /uL Baso # (Auto) 0 (0-100) /uL Sodium 133 L (137-145) mmol/L Potassium 3.9 (3.4-5.1) mmol/L Chloride 102 (98-107) mmol/L Carbon Dioxide 22 (22-32) mmol/L BUN 15 (9-20) mg/dL Creatinine 0.72 (0.66-1.25) mg/dL Estimated GFR > 60 (>60) mL/min BUN/Creatinine Ratio 20.8 (6-22) Glucose 114 H (80-110) mg/dL Calcium 9.4 (8.4-10.2) mg/dL Total Bilirubin 0.7 (0.2-1.3) mg/dL AST 36 (17-59) IU/L ALT 27 (<50) IU/L Alkaline Phosphatase 69 (38-126) U/L Total Protein 7.3 (6.3-8.2) g/dL Albumin 4.2 (3.5-5.0) g/dL Globulin 3.1 (1.7-4.1) g/dL Albumin/Globulin Ratio 1.4 (1.0-2.8) Triglycerides 69 (35-150) mg/dL Cholesterol 158 (140-199) mg/dL LDL Cholesterol, Calc 92 (<100) mg/dL HDL Cholesterol 52 (40-60) mg/dL Lipase 15973 H (23-300) U/L Point of care testing: Urine Dip Bedside Urine Glucose Negative Bedside Urine Bilirubin - Negative Bedside Urine Ketone - Negative Urine Specific [place] 1.015 Bedside Urine Occult Blood - Negative Bedside Urine pH 6 Bedside Urine Protein - Negative Bedside Urine Urobilinogen - Negative Bedside Urine Nitrite - Negative Bedside Urine Leukocytes - Negative Esterase Imaging Data US - abdomen: Radiologist's Impression: PROCEDURE: US ABDOMEN LIMITED ? INDICATIONS:? RUQ PAIN, PANCREATITIS ? TECHNIQUE:? Real-time focused scanning was performed of the abdomen, with image documentation.? ? COMPARISON:? MR, MR ABD WO CON, 11/12/2016, 9:55.? CT, ABDOMEN WITH CONTRAST, 09/16/2016, 10:43. ? FINDINGS:? Liver measures 16.6 cm.? Left lobe is not visualized and difficult to evaluate.? Sludge is present within the gallbladder.? Wall thickness measures 3.4 mm.? Simple right renal cyst is present.? Pancreas is visualized.? ? IMPRESSION:? Pancreas is not visualized. ? Prominence of the gallbladder wall with sludge.? Developing cholecystitis cannot be definitively excluded. ? ? Dictated by: Wanda Pinon M.D. on 10/26/2022 at 21:37 ?? CT scan - abdomen/pelvis: Radiologist's Impression: PROCEDURE:? CT ABDOMEN PELVIS W CON ? INDICATIONS:? Pancreatitis ? TECHNIQUE:? After the administration of IV contrast, axial sections were acquired from the lung bases to the pubic symphysis.? Coronal and sagittal reformats were performed.? For radiation dose reduction, the following was used:? automated exposure control, adjustment of mA and/or kV according to patient size. ? COMPARISON:? [facility], CT, ABDOMEN/PELVIS WITH CONTRAST, 07/05/2016, 15:44. ? FINDINGS:? Image quality:? Portions of the lower pelvis are suboptimally evaluated secondary to metallic streak artifact from hip arthroplasty. ? Lung bases:? Unremarkable.? ? Heart:? No significant findings. ? ? ABDOMEN: Liver:? Liver measures 20.3 cm with steatosis. Gallbladder:? Unremarkable.? ? Biliary ducts:? Unremarkable.? ? Pancreas:? The pancreas demonstrates prominent at edematous changes in the uncinate process, pancreatic head and body most significantly.? Peripancreatic fluid is present.? No localized collection to suggest abscess or pseudocyst.? Pancreatic duct measures approximately 3 mm.? Pancreatic parenchyma demonstrates normal enhancement. Spleen:? Unremarkable.? ? Adrenal Glands:? Unremarkable.? ? Kidneys and Ureters:? Simple right renal cyst is present. ? Stomach and Bowel:? Stomach, small bowel loops, and colon are unremarkable.? Appendix is normal. Peritoneum:? No abnormal intraperitoneal fluid.? No free air.? ? Ventral Wall: ? No hernia.? Abdominal Nodes:? No retroperitoneal or mesenteric adenopathy by size criteria.? Vessels:? Aorta and inferior vena cava are normal in size.? ? PELVIS: Pelvic Organs:? Unremarkable.? ? Bladder:? Unremarkable.? ? Pelvic Nodes: No enlarged lymph nodes.? Miscellaneous: No inguinal hernias are seen. ? ? ? Bones:? Unremarkable.? IMPRESSION:? ? Pancreatic edema with peripancreatic fluid most consistent with pancreatitis.? No pseudocyst.? No evidence of necrotizing pancreatitis. ? ? Dictated by: Wanda Pinon M.D. on 10/26/2022 at 22:00 ? ? ECG Data Interpretation: Sinus rhythm rate 111 UT interval 186 QRS 98 QTC [address] changes MDM Narrative Medical decision making narrative: The patient 77-year-old male presenting today with epigastric pain some nausea as found to have pancreatitis. Lipase is greater than 19,000 without elevation bilirubin or liver enzymes. Ultrasound was indeterminate not able visualized pancreas. CT did not show any evidence of necrotizing pancreatitis or pseudocyst. Patient's pain is well-controlled he is given IV fluids and Zofran. Dr. Herrera accepts patient Discharge Plan Departure Patient Disposition: Admitted as Observation Clinical Impression: Pancreatitis Admit Date/Time: 10/26/22 22:00 Admit Provider: Lazarus Herrera
[2022-10-26] MEDS: HYDROMORPHONE 0.5 MG INJ IV (20:42)
[2022-10-26] MEDS: SODIUM CHLORIDE 0.9% 1,000 ML 1000 ML IV (20:43)
--- NOTE | 2022-10-26 21:08 | DI.CT.S_ITS ---
PROCEDURE: CT ABDOMEN PELVIS W CON INDICATIONS: Pancreatitis TECHNIQUE: After the administration of IV contrast, axial sections were acquired from the lung bases to the pubic symphysis. Coronal and sagittal reformats were performed. For radiation dose reduction, the following was used: automated exposure control, adjustment of mA and/or kV according to patient size. COMPARISON: [facility], CT, ABDOMEN/PELVIS WITH CONTRAST, 07/05/2016, 15:44. FINDINGS: Image quality: Portions of the lower pelvis are suboptimally evaluated secondary to metallic streak artifact from hip arthroplasty. Lung bases: Unremarkable. Heart: No significant findings. ABDOMEN: Liver: Liver measures 20.3 cm with steatosis. Gallbladder: Unremarkable. Biliary ducts: Unremarkable. Pancreas: The pancreas demonstrates prominent at edematous changes in the uncinate process, pancreatic head and body most significantly. Peripancreatic fluid is present. No localized collection to suggest abscess or pseudocyst. Pancreatic duct measures approximately 3 mm. Pancreatic parenchyma demonstrates normal enhancement. Spleen: Unremarkable. Adrenal Glands: Unremarkable. Kidneys and Ureters: Simple right renal cyst is present. Stomach and Bowel: Stomach, small bowel loops, and colon are unremarkable. Appendix is normal. Peritoneum: No abnormal intraperitoneal fluid. No free air. Ventral Wall: No hernia. Abdominal Nodes: No retroperitoneal or mesenteric adenopathy by size criteria. Vessels: Aorta and inferior vena cava are normal in size. PELVIS: Pelvic Organs: Unremarkable. Bladder: Unremarkable. Pelvic Nodes: No enlarged lymph nodes. Miscellaneous: No inguinal hernias are seen. Bones: Unremarkable. IMPRESSION: Pancreatic edema with peripancreatic fluid most consistent with pancreatitis. No pseudocyst. No evidence of necrotizing pancreatitis. Dictated by: Wanda Pinon M.D. on 10/26/2022 at 22:00 Approved by: Wanda Pinon M.D. on 10/26/2022 at 22:03
[2022-10-26 22:02] VITALS: BP 189/91; PULSE 90; RESP 18; O2SAT 95
[2022-10-26 22:50] VITALS: BMI 26.6
[2022-10-26 23:00] VITALS: BP 132/74; PULSE 68; RESP 14; TEMP 36.6; O2SAT 99
[2022-10-26 23:05] VITALS: BP 146/74; PULSE 96; RESP 18; TEMP 36.4; O2SAT 96
[2022-10-26] MEDS: OXYCODONE IR 5 MG TABLET PO (23:44)
[2022-10-26] MEDS: SODIUM CHLORIDE 0.9% 1,000 ML 150 ML IV (23:48)
[2022-10-26 23:54] LABS: Cholesterol 158 mg/dL (140-199); HDL Cholesterol 52 mg/dL (40-60); LDL Cholesterol Calculated 92 mg/dL (<100); Triglycerides 69 mg/dL (35-150)
[2022-10-27] MEDS: HYDROMORPHONE 0.5 MG INJ IV ×3 (01:21→13:10)
[2022-10-27] MEDS: ONDANSETRON 4 MG/2 ML INJ IV ×3 (01:21→13:10)
--- NOTE | 2022-10-27 03:40 | PM.HP.1 ---
History of Present Illness History of Present Illness Date Patient Seen: 10/26/22 Time Patient Seen: 22:00 Chief complaint: stomach cramps R/side back pain Narrative: Mr. Crowder is a 77 M with PMH HTN, HL who presents to the hospital with abdominal pain. He drinks a glass of wine daily, last was 4 days ago. He has no history of gallstones. No new medication. No OTC or herbal supplements. He says his cholesterol has been well controlled. He has no diarrhea. Some nausea. In the ED workup was done, vitals afebrile, heart 110s, blood pressure 130s/80s. Labs reviewed by me and WBC 14.4, hgb 16.3, plts 280. Na 133, creatinine 0.72. Lipase 42005. Imaging reviewed by me and notable for pancreatic edema. Abdominal ultrasound shows prominence of gallbladder wall with sludge. He was ordered for fluids and admitted for further treatment. [facility] Surgical History H/O vasectomy History of total hip replacement Hx of tonsillectomy Social History household members: spouse Smoking Status: Former smoker alcohol intake: current Meds Home Medications and Allergies Home Medications Medication Instructions Recorded Confirmed Type multivitamin (Multiple Vitamins 1 tab PO QDAY ##0 06/12/16 10/26/22 History tablet) acetaminophen 325 mg capsule 325 mg PO QID PRN Headache 09/07/20 10/26/22 History (Tylenol) atorvastatin 10 mg tablet 10 mg PO DAILY 09/07/20 10/26/22 History amlodipine 5 mg tablet (Norvasc) See Rx Instructions .Route .COMPLEX 01/24/22 10/27/22 History aspirin 81 mg tablet 81 mg PO DAILY 10/26/22 10/26/22 History Allergies Allergy/AdvReac Type Severity Reaction Status Date / Time No Known Drug Allergies Allergy Verified 10/26/22 19:23 Review of Systems Review of Systems Narrative: 14 systems reviewed and negative aside from what is noted in HPI Exam Vital Signs (past 8 hours): - 10/26/22 20:23 10/26/22 22:02 10/26/22 23:00 Temperature 98 F Pulse Rate 87 90 68 Respiratory Rate 16 18 14 Blood Pressure 140/78 189/91 H 132/74 Pulse Oximetry 95 95 99 Oxygen Delivery Method Room Air Room Air Room Air Oxygen Flow Rate 10/26/22 22:50 10/26/22 23:05 Temperature 97.6 F Pulse Rate 96 H Respiratory Rate 18 Blood Pressure 146/74 H Pulse Oximetry 96 Oxygen Delivery Method Room Air Oxygen Flow Rate 0 Oxygen Delivery Method Room Air Oxygen Flow Rate 0 Narrative Exam Narrative: GEN: no acute distress CV: regular rate and rhythm PULM: clear bilaterally ABD: soft, diffusely tender EXT: warm and well perfused, no edema NEURO: awake, alert, oriented no focal deficits Objective Labs 10/26/22 19:40 10/26/22 19:40 Labs: Laboratory Results - last 24 hr 10/26/22 10/26/22 10/26/22 19:40 19:40 19:40 WBC 14.4 H RBC 5.52 Hgb 16.3 Hct 46.8 MCV 84.8 MCH 29.6 MCHC 34.9 RDW 13.8 Plt Count 280 Neut % (Auto) 80.7 H Lymph % (Auto) 11.5 L [place] % (Auto) 6.6 Eos % (Auto) 0.9 L Baso % (Auto) 0.3 Neut # (Auto) 18751 H Lymph # (Auto) 1700 [place] # (Auto) 1000 H Eos # (Auto) 100 Baso # (Auto) 0 Sodium 133 L Potassium 3.9 Chloride 102 Carbon Dioxide 22 BUN 15 Creatinine 0.72 Estimated GFR > 60 BUN/Creatinine Ratio 20.8 Glucose 114 H Calcium 9.4 Total Bilirubin 0.7 AST 36 ALT 27 Alkaline Phosphatase 69 Total Protein 7.3 Albumin 4.2 Globulin 3.1 Albumin/Globulin Ratio 1.4 Triglycerides 69 Cholesterol 158 LDL Cholesterol, Calc 92 HDL Cholesterol 52 Lipase 08228 H Assessment & Plan Assessment & Plan narrative: 1. Acute pancreatitis -no significant alcohol use, no gallstones on imaging -no clear medication or OTC, no significant anatomical abnormality that would be a typical etiology -check lipids -for now start liquid diet as patient has controlled pain and nausea -IV pain meds -IV fluids ordered 2. Hypertension -hold anti-hypertensives 3. Gall bladder wall prominence -monitor for clinical improvement -may have passed stone or have an early infection -likely will need surgery consult for further consideration of intervention on this gallbladder I have discussed plan and obtained history from patient. I have discussed plan of care with ED physician and bedside nurse. I have reviewed labs, imaging. CODE: Full Proxy: Thao Arredondocharlie, [facility] 'Current medications' to include all prescriptions, mmpb-sag-cymolks products, herbals, cannabis/cannabidiol products, and vitamin/mineral/dietary (nutritional) supplements. I have utilized all available resources to obtain, update, or review the patient?s current medications. [If Yes, STOP here]: Yes
[2022-10-27 05:33] VITALS: BP 138/60; PULSE 74; RESP 16; TEMP 36.3; O2SAT 94
[2022-10-27 05:53] LABS: Add Manual Diff / Slide Review NO; Basophils Absolute Auto 0 /uL (0-100); Basophils Percent Auto 0.1 % (0-2); Eosinophils Absolute Auto 0 /uL (0-450); Hematocrit 43.2 % (41-53); Hemoglobin 14.9 g/dL (13.5-17.5); Lymphocytes Absolute Auto 600 /uL (1100-4500); Lymphocytes Percent Auto 6.1 % (25-40); Mean Corpuscular HGB Conc 34.6 % (30-36); Mean Corpuscular Hemoglobin 29.5 PG (26-34); Mean Corpuscular Volume 85.3 fL (80-100); Monocytes Absolute Auto 500 /uL (0-900); Monocytes Percent Auto 4.4 % (3-14); Neutrophils Absolute Auto 9100 /uL (1500-7000); Neutrophils Percent Auto 89.4 % (50-75); Platelet Count 234 X10^3/uL (150-400); Red Blood Cell Count 5.06 X10^6/uL (4.5-5.9); Red Cell Distribution Width 13.7 % (11.6-14.8); White Blood Cell Count 10.2 X10^3/uL (4.5-11.0)
[2022-10-27 06:06] LABS: BUN Creatinine Ratio 21.5 (6-22); Blood Urea Nitrogen 14 mg/dL (9-20); Calcium 8.2 mg/dL (8.4-10.2); Carbon Dioxide 24 mmol/L (22-32); Chloride 104 mmol/L (98-107); Estimated Glomerular Filt Rate > 60 mL/min (>60); Glucose 139 mg/dL (80-110); HEMOLYSIS < 15 (0-50); Potassium 3.8 mmol/L (3.4-5.1); Sodium 135 mmol/L (137-145)
[2022-10-27] MEDS: OXYCODONE IR 5 MG TABLET PO ×2 (09:49→20:53)
[2022-10-27] MEDS: ENOXAPARIN 40 MG/0.4 ML SYRINGE SUBCUT (09:50)
--- NOTE | 2022-10-27 10:48 | P.PN_ITS ---
Subjective Subjective Date Patient Seen: 10/27/22 Interval history: 77 yo admitted with acute pancreatitis. Pt with continued pain across upper abdomen and nausea relieved with Zofran. Exam Vital Signs (past 8 hours): - 10/27/22 05:33 Temperature 97.3 F L Pulse Rate 74 Respiratory Rate 16 Blood Pressure 138/60 Pulse Oximetry 94 Oxygen Flow Rate 0 Oxygen Delivery Method Room Air Oxygen Flow Rate 0 Narrative Exam Narrative: Gen: alert, oriented Lungs: clear Abd: tender across upper abdomen Ext: no edema Objective Labs 10/27/22 04:55 10/27/22 04:55 Labs: Laboratory Results - last 24 hr 10/26/22 10/26/22 10/26/22 19:40 19:40 19:40 WBC 14.4 H RBC 5.52 Hgb 16.3 Hct 46.8 MCV 84.8 MCH 29.6 MCHC 34.9 RDW 13.8 Plt Count 280 Neut % (Auto) 80.7 H Lymph % (Auto) 11.5 L [place] % (Auto) 6.6 Eos % (Auto) 0.9 L Baso % (Auto) 0.3 Neut # (Auto) 28786 H Lymph # (Auto) 1700 [place] # (Auto) 1000 H Eos # (Auto) 100 Baso # (Auto) 0 Sodium 133 L Potassium 3.9 Chloride 102 Carbon Dioxide 22 BUN 15 Creatinine 0.72 Estimated GFR > 60 BUN/Creatinine Ratio 20.8 Glucose 114 H Calcium 9.4 Total Bilirubin 0.7 AST 36 ALT 27 Alkaline Phosphatase 69 Total Protein 7.3 Albumin 4.2 Globulin 3.1 Albumin/Globulin Ratio 1.4 Triglycerides 69 Cholesterol 158 LDL Cholesterol, Calc 92 HDL Cholesterol 52 Lipase 69133 H 10/27/22 10/27/22 04:55 04:55 WBC 10.2 RBC 5.06 Hgb 14.9 Hct 43.2 MCV 85.3 MCH 29.5 MCHC 34.6 RDW 13.7 Plt Count 234 Neut % (Auto) 89.4 H Lymph % (Auto) 6.1 L [place] % (Auto) 4.4 Eos % (Auto) 0.0 L Baso % (Auto) 0.1 Neut # (Auto) 9100 H Lymph # (Auto) 600 L [place] # (Auto) 500 Eos # (Auto) 0 Baso # (Auto) 0 Sodium 135 L Potassium 3.8 Chloride 104 Carbon Dioxide 24 BUN 14 Creatinine 0.65 L Estimated GFR > 60 BUN/Creatinine Ratio 21.5 Glucose 139 H Calcium 8.2 L Total Bilirubin AST ALT Alkaline Phosphatase Total Protein Albumin Globulin Albumin/Globulin Ratio Triglycerides Cholesterol LDL Cholesterol, Calc HDL Cholesterol Lipase PFSH Surgical History H/O vasectomy History of total hip replacement Hx of tonsillectomy Social History household members: spouse Smoking Status: Former smoker alcohol intake: current Assessment & Plan Assessment & Plan narrative: 1. Acute pancreatitis -?due to bile sludge, less likely ampulllary lesion/stenosis -this is pt's second episode in 8 years -abd CT: inflamed pancreas, no pancreatic mass/lesion -US: GB sludge -consult surgery re elective raffaele -cont pain control, zofran prn, diet as tolerated -Miralax/prunes for constipation 2. Hypertension, hyperlipidemia -holding meds DVT prevention: enoxaprin
[2022-10-27 12:00] VITALS: BP 153/71; PULSE 94; RESP 20; TEMP 36.4; O2SAT 95
[2022-10-27] MEDS: SODIUM CHLORIDE 0.9% 1,000 ML 150 ML IV ×2 (12:12→20:57)
--- NOTE | 2022-10-27 12:12 | CM.DANOTE ---
DCP Assessment: Patient is a 77 yo M here under inpatient status with pancreatitis. PCP: Harley Stringer Payer: Medicare and [employer]. GREASE REFINING SUPERVISOR reviewed EMR. From nursing staff, likely will have no needs from CM team upon d/c. GREASE REFINING SUPERVISOR entered room and introduced self and role. Patient was sitting up in bed and appeared A/Ox4. He reported his abdominal pain was about a 5 at this moment. Patient lives at home with his , Thao Funk ([phone]). Thao is having leg reset today after breaking her leg in a different hospital. Patient's daughter, Sandra ([phone]) is a social work lecturer in [employer] and is flying in today to help care for both parents and is currently planning to stay the week. Patient's son, Moe ([phone]) lives in the area as well and can assist as able. Patient reports being independent at baseline. Patient drives and is ambulatory. Patient is open to HH if needed. Patient is primarily worried about caring for self and upon both their discharges, but reports feeling like daughter can care for both of them at this time. Plan: patient will likely d/c home when medically stable. Transport in POV or with one of adult children. CM team will continue to follow closely for needs. TERRIE Calloway Discharge Planning/Care Management CM Discharge Assessment Start: 10/27/22 12:10 Freq: Status: Active Protocol: Document 10/27/22 12:10 (Rec: 10/27/22 12:12 [id number]) Discharge Planning Assessment Assigned Corporate Development Intern TERRIE Summers DPOA/Assigned Designee Name Thao Funk (spouse) Contact Information [phone] Advance Directives? Yes Advance Directives on File No History Provided By Patient,Medical Record Prior Living Arrangements House Household Members spouse Type of transporation used prior to Drives own vehicle admit Comment home to HH if needed. patient understands it may not be appropriate. Barriers to Discharge No Discharge Plan Home Transportation Arrangement daughter or son can drive home upon d/c Whiteboard Updated in Patient Room with Yes name and ext. # of Corporate Development Intern Review Status In Process Next Review Type Continued Stay Review
--- NOTE | 2022-10-27 14:10 | PM.CN ---
History of Present Illness Consult details Date Patient Seen: 10/27/22 Time Patient Seen: 14:10 Chief complaint: stomach cramps R/side back pain Narrative: Rolly is a 77-year-old man who presented to the emergency department yesterday with sudden onset of severe abdominal pain. He was admitted to the hospital and found to have pancreatitis. He does not drink alcohol daily. He had an ultrasound which did show gallbladder sludge. He also had an episode of pancreatitis about 8 years ago. His pain persists today. Meds Home Medications and Allergies Home Medications Medication Instructions Recorded Confirmed Type multivitamin (Multiple Vitamins 1 tab PO QDAY ##0 06/12/16 10/26/22 History tablet) acetaminophen 325 mg capsule 325 mg PO QID PRN Headache 09/07/20 10/26/22 History (Tylenol) atorvastatin 10 mg tablet 10 mg PO DAILY 09/07/20 10/26/22 History amlodipine 5 mg tablet (Norvasc) See Rx Instructions .Route .COMPLEX 01/24/22 10/27/22 History aspirin 81 mg tablet 81 mg PO DAILY 10/26/22 10/26/22 History Allergies Allergy/AdvReac Type Severity Reaction Status Date / Time No Known Drug Allergies Allergy Verified 10/26/22 19:23 Exam Vital Signs (past 8 hours): - 10/27/22 12:00 Temperature 97.6 F Pulse Rate 94 H Respiratory Rate 20 Blood Pressure 153/71 H Pulse Oximetry 95 Oxygen Delivery Method Room Air Oxygen Flow Rate 0 Narrative Exam Narrative: Tender to palpation in the epigastrium and right upper quadrant Objective Labs 10/27/22 04:55 10/27/22 04:55 Labs: Laboratory Results - last 24 hr 10/26/22 10/26/22 10/26/22 19:40 19:40 19:40 WBC 14.4 H RBC 5.52 Hgb 16.3 Hct 46.8 MCV 84.8 MCH 29.6 MCHC 34.9 RDW 13.8 Plt Count 280 Neut % (Auto) 80.7 H Lymph % (Auto) 11.5 L [place] % (Auto) 6.6 Eos % (Auto) 0.9 L Baso % (Auto) 0.3 Neut # (Auto) 39988 H Lymph # (Auto) 1700 [place] # (Auto) 1000 H Eos # (Auto) 100 Baso # (Auto) 0 Sodium 133 L Potassium 3.9 Chloride 102 Carbon Dioxide 22 BUN 15 Creatinine 0.72 Estimated GFR > 60 BUN/Creatinine Ratio 20.8 Glucose 114 H Calcium 9.4 Total Bilirubin 0.7 AST 36 ALT 27 Alkaline Phosphatase 69 Total Protein 7.3 Albumin 4.2 Globulin 3.1 Albumin/Globulin Ratio 1.4 Triglycerides 69 Cholesterol 158 LDL Cholesterol, Calc 92 HDL Cholesterol 52 Lipase 47420 H 10/27/22 10/27/22 04:55 04:55 WBC 10.2 RBC 5.06 Hgb 14.9 Hct 43.2 MCV 85.3 MCH 29.5 MCHC 34.6 RDW 13.7 Plt Count 234 Neut % (Auto) 89.4 H Lymph % (Auto) 6.1 L [place] % (Auto) 4.4 Eos % (Auto) 0.0 L Baso % (Auto) 0.1 Neut # (Auto) 9100 H Lymph # (Auto) 600 L [place] # (Auto) 500 Eos # (Auto) 0 Baso # (Auto) 0 Sodium 135 L Potassium 3.8 Chloride 104 Carbon Dioxide 24 BUN 14 Creatinine 0.65 L Estimated GFR > 60 BUN/Creatinine Ratio 21.5 Glucose 139 H Calcium 8.2 L Total Bilirubin AST ALT Alkaline Phosphatase Total Protein Albumin Globulin Albumin/Globulin Ratio Triglycerides Cholesterol LDL Cholesterol, Calc HDL Cholesterol Lipase [facility] Surgical History H/O vasectomy History of total hip replacement Hx of tonsillectomy Social History household members: spouse Tobacco & Substance Use Smoking Status: Former smoker alcohol intake: current Assessment & Plan Assessment and plan (1) Pancreatitis: Qualifiers: Chronicity: acute Pancreatitis type: unspecified pancreatitis type Acute pancreatitis complication: no infection or necrosis Qualified Code(s): K85.90 - Acute pancreatitis without necrosis or infection, unspecified Status: Acute Plan Given the finding of gallbladder sludge I believe gallstone pancreatitis is a likely explanation for his pancreatitis. I explained the rationale, risks and benefits of laparoscopic cholecystectomy with intraoperative cholangiogram. If he remains hemodynamically stable tonight symptoms improve or at least do not worsen I would recommend proceeding with a laparoscopic cholecystectomy with intraoperative cholangiogram tomorrow. He develops any abnormalities with his vital signs or if his symptoms are worse tomorrow we might consider delaying the surgery until we know that the pancreatitis is truly resolving. He should be NPO after midnight night.
[2022-10-27 18:00] VITALS: BP 156/75; PULSE 102; RESP 18; TEMP 37.4; O2SAT 94
[2022-10-27 23:15] VITALS: BP 141/75; PULSE 99; RESP 20; TEMP 37.6; O2SAT 91
[2022-10-27 23:48] VITALS: TEMP 37.2
[2022-10-28] VITALS (19 sets, daily range): BP systolic 99–159; BP diastolic 51–79; PULSE 77–100; RESP 10–20; TEMP 36–37.9; O2SAT 91–97; BMI 26.6
--- NOTE | 2022-10-28 | DI.RAD.S_ITS ---
PROCEDURE: XR CHOLANGIOGRAM OPERATIVE INDICATIONS: cholecystectomy COMPARISON: None. FINDINGS: Biliary ducts: The surgeon injected contrast into the biliary ducts after cannulation of the cystic duct stump. Visualized intra- and extrahepatic bile ducts are normal in caliber, without strictures. No intraluminal filling defects to suggest retained ductal stones or sludge. No evidence for iatrogenic ductal injury. Duodenum: Contrast flows promptly through the sphincter of Oddi into the duodenum, which appears normal in caliber. IMPRESSION: No filling defects within the opacified common bile duct. Dictated by: Warren Okeefe M.D. on 10/28/2022 at 15:59 Approved by: Warren Okeefe M.D. on 10/28/2022 at 16:00
--- NOTE | 2022-10-28 | PATH_ITS ---
[facility] Accession Number: [id number] No. of containers..01 Tissue . 01 Material submitted: . gallbladder - GALLBLADDER . 01 Diagnosis: Gallbladder, Cholecystectomy: Consistent with chronic cholecystitis. Cholesterol polyps and cholesterolosis. Calculi not identified. Negative for dysplasia and neoplasia. MRV 10/31/2022 1625 Local . 01 Electronically signed: . Anette Carter MD, Pathologist NPI- [id number] . 01 Gross description: . The specimen is received in formalin labeled with the patient's name, , and gallbladder, and consists of a disrupted gallbladder measuring 7.3 x 2.8 x 1.6 cm with a full-thickness defect measuring 0.7 cm in greatest dimension. The cystic duct margin is inked blue, and no pericystic lymph node is identified. The lumen is filled with dark green, mucoid bile with no calculi identified in the lumen or the container. The mucosa is dark green and velvety with a few small yellow areas of discoloration, with no polyps or lesions identified. The green average 0.2 cm thick. Sustainability Manager sections to include the cystic duct margin and full-thickness sections are submitted in cassette A1. ([id number]) /FRR 10/30/2022 0300 Local . 01 Pathologist provided ICD-10: K81.1 . 01 CPT . 551299 Specimen Comment: A courtesy copy of this report has been sent to [phone] Performed at: 01 [facility] [address] [place] [address] Suite [facility], [place], [place] [id number] MD Ashok Giles MD Phone: [phone]
[2022-10-28] MEDS: OXYCODONE IR 5 MG TABLET PO (03:29)
[2022-10-28] MEDS: SODIUM CHLORIDE 0.9% 1,000 ML 150 ML IV ×2 (03:31→10:09)
[2022-10-28 06:28] LABS: Add Manual Diff / Slide Review NO; Basophils Absolute Auto 0 /uL (0-100); Basophils Percent Auto 0.3 % (0-2); Eosinophils Absolute Auto 0 /uL (0-450); Eosinophils Percent Auto 0.1 % (2-4); Hematocrit 42.3 % (41-53); Hemoglobin 14.4 g/dL (13.5-17.5); Lymphocytes Absolute Auto 1300 /uL (1100-4500); Lymphocytes Percent Auto 10.5 % (25-40); Mean Corpuscular Hemoglobin 29.3 PG (26-34); Mean Corpuscular Volume 86.1 fL (80-100); Monocytes Absolute Auto 1000 /uL (0-900); Monocytes Percent Auto 8.5 % (3-14); Neutrophils Absolute Auto 9900 /uL (1500-7000); Neutrophils Percent Auto 80.6 % (50-75); Platelet Count 217 X10^3/uL (150-400); Red Blood Cell Count 4.92 X10^6/uL (4.5-5.9); Red Cell Distribution Width 13.9 % (11.6-14.8); White Blood Cell Count 12.3 X10^3/uL (4.5-11.0)
[2022-10-28 06:49] LABS: Alanine Aminotransferase 18 IU/L (<50); Albumin 3.2 g/dL (3.5-5.0); Albumin Globulin Ratio 1.3 (1.0-2.8); Alkaline Phosphatase 55 U/L (38-126); Aspartate Aminotransferase 24 IU/L (17-59); BUN Creatinine Ratio 19.7 (6-22); Bilirubin Total 0.8 mg/dL (0.2-1.3); Blood Urea Nitrogen 12 mg/dL (9-20); Calcium 7.7 mg/dL (8.4-10.2); Carbon Dioxide 24 mmol/L (22-32); Chloride 102 mmol/L (98-107); Estimated Glomerular Filt Rate > 60 mL/min (>60); Globulin 2.5 g/dL (1.7-4.1); Glucose 81 mg/dL (80-110); HEMOLYSIS < 15 (0-50); Potassium 3.6 mmol/L (3.4-5.1); Sodium 132 mmol/L (137-145); Total Protein 5.7 g/dL (6.3-8.2)
[2022-10-28 07:14] LABS: Lipase 5549 U/L (23-300)
--- NOTE | 2022-10-28 09:12 | PM.PN.1 ---
Subjective Subjective Date Patient Seen: 10/28/22 Time Patient Seen: 09:12 Interval history: Rolly feels much better today. He still complains of some right-sided abdominal pain. Lipase is down from yesterday. Exam Vital Signs (past 8 hours): - 10/28/22 03:25 10/28/22 08:02 Temperature 98.1 F 99.4 F Pulse Rate 95 H 91 H Respiratory Rate 20 18 Blood Pressure 157/76 H 159/72 H Pulse Oximetry 92 Oxygen Flow Rate 0 Oxygen Delivery Method Room Air Oxygen Flow Rate 0 Const General: No acute distress Objective Labs 10/28/22 05:35 10/28/22 05:35 Labs: Laboratory Results - last 24 hr 10/28/22 10/28/22 05:35 05:35 WBC 12.3 H RBC 4.92 Hgb 14.4 Hct 42.3 MCV 86.1 MCH 29.3 MCHC 34.0 RDW 13.9 Plt Count 217 Neut % (Auto) 80.6 H Lymph % (Auto) 10.5 L [place] % (Auto) 8.5 Eos % (Auto) 0.1 L Baso % (Auto) 0.3 Neut # (Auto) 9900 H Lymph # (Auto) 1300 [place] # (Auto) 1000 H Eos # (Auto) 0 Baso # (Auto) 0 Sodium 132 L Potassium 3.6 Chloride 102 Carbon Dioxide 24 BUN 12 Creatinine 0.61 L Estimated GFR > 60 BUN/Creatinine Ratio 19.7 Glucose 81 Calcium 7.7 L Total Bilirubin 0.8 AST 24 ALT 18 Alkaline Phosphatase 55 Total Protein 5.7 L Albumin 3.2 L Globulin 2.5 Albumin/Globulin Ratio 1.3 Lipase 5549 H D [facility] Surgical History H/O vasectomy History of total hip replacement Hx of tonsillectomy Social History household members: spouse Smoking Status: Former smoker alcohol intake: current Assessment & Plan Assessment and plan (1) Gallstone pancreatitis: Status: Acute Plan We reviewed the risks and benefits of laparoscopic cholecystectomy with intraoperative cholangiogram for gallstone pancreatitis and he would like to proceed.
[2022-10-28] MEDS: HYDROMORPHONE 0.5 MG INJ IV (10:12)
--- NOTE | 2022-10-28 11:54 | PM.PN.1 ---
Subjective Subjective Date Patient Seen: 10/28/22 Interval history: Pt is 77 yo male admitted with recurrent pancreatitis. He reports improvement in abdominal pain. Scheduled for lap raffaele today. Exam Vital Signs (past 8 hours): - 10/28/22 08:02 Temperature 99.4 F Pulse Rate 91 H Respiratory Rate 18 Blood Pressure 159/72 H Oxygen Delivery Method Room Air Oxygen Flow Rate 0 Narrative Exam Narrative: Gen: alert, NAD Lungsd: clear Abd: soft, non-tender Ext: no edema Objective Labs 10/28/22 05:35 10/28/22 05:35 Labs: Laboratory Results - last 24 hr 10/28/22 10/28/22 05:35 05:35 WBC 12.3 H RBC 4.92 Hgb 14.4 Hct 42.3 MCV 86.1 MCH 29.3 MCHC 34.0 RDW 13.9 Plt Count 217 Neut % (Auto) 80.6 H Lymph % (Auto) 10.5 L [place] % (Auto) 8.5 Eos % (Auto) 0.1 L Baso % (Auto) 0.3 Neut # (Auto) 9900 H Lymph # (Auto) 1300 [place] # (Auto) 1000 H Eos # (Auto) 0 Baso # (Auto) 0 Sodium 132 L Potassium 3.6 Chloride 102 Carbon Dioxide 24 BUN 12 Creatinine 0.61 L Estimated GFR > 60 BUN/Creatinine Ratio 19.7 Glucose 81 Calcium 7.7 L Total Bilirubin 0.8 AST 24 ALT 18 Alkaline Phosphatase 55 Total Protein 5.7 L Albumin 3.2 L Globulin 2.5 Albumin/Globulin Ratio 1.3 Lipase 5549 H D PFSH Surgical History H/O vasectomy History of total hip replacement Hx of tonsillectomy Social History household members: spouse Smoking Status: Former smoker alcohol intake: current Assessment & Plan Assessment & Plan narrative: 1. Acute biliary pancreatitis -this is pt's second episode in 8 years -abd CT: inflamed pancreas, no pancreatic mass/lesion -US: GB sludge -cont pain control, zofran prn, diet as tolerated -Miralax/prunes for constipation -lap raffaele with Dr Jalloh today 2. Hypertension, hyperlipidemia -holding meds DVT prevention: enoxaprin
--- NOTE | 2022-10-28 11:59 | CM.DPC ---
DCP Continued: Son Moe ([phone]) called [employer] to ask when someone from this team would be coming by to chat with them regarding patient's d/c plan. [employer] told son she would be there as soon as available. PRODUCTION SORTER reviewed EMR. From rounds, patient is schedule for a lap raffaele later today for patient's pancreatitis. PRODUCTION SORTER entered the room and reintroduced self and role. Patient appeared A/Ox4, was sitting up in bed, and was pleasant and chatty. Son Moe was sitting at bedside. Patient and son had questions regarding home plan. Son had questions for how house should be set up upon d/c. [employer]TER acted within area of competency and refereed patient and son to clinical staff for further information regarding housing set up. Patient's , Thao Rosa, had her leg reset yesterday and is doing well now but family have concerns for her d/c plan. Patient and son had concerns regarding a safe plan due to both patient and patient's having recent medical concerns and patient being less able to care for spouse.. PR[employer] S[employer]TER provided information and star rating sheet for the Medicare approved SNFs. PRODUCTION SORTER provided brochures and star ratings for HH agencies. PRODUCTION S[employer]TER provided Senior Resources booklet for private pay caregivers. Patient reported this incident with him and his has made them consider more intermediate teacher plans and their ability to care for themselves independently. [employer]TER told patient and son that we cannot order HH for , but PCP can potentially place HH order for either patient or if they d/c without it now and decide they need it later. Patient and son expressed verbal understanding they may not d/c with HH from this hospital. Patient's daughter, Sandra ([phone]), landed yesterday from [place] and is here to care for both parents for the next week. Son is also available to help, lives in [place]. Plan: lap raffaele later today. Patient will likely d/c home with family care. Patient open to HH if needed, rule out later. Transport with family. CM team will continue to follow closely. TERRIE Calloway
[2022-10-28] MEDS: LACTATED RINGERS 1,000 ML 42 ML IV (13:03)
[2022-10-28] MEDS: CEFAZOLIN 2 GM/100 ML PREMIX 100 ML IV (14:01)
--- NOTE | 2022-10-28 14:06 | SUR.OPER ---
Supine on padded OR bed, head on pillow, arms secured on padded arm boards at <90 degrees abduction, legs uncrossed, safety belt at thigh, tape over blanket over lower legs.
[2022-10-28] MEDS: BUPIVACAINE 0.5% (PF) 30 ML, EPINEPHrine 0.15 MG INJ (14:15)
--- NOTE | 2022-10-28 14:45 | PM.OP.1 ---
Operative Date/Time/Diagnoses Date of procedure: 10/28/22 Time of procedure: 14:45 Pre-op diagnosis: Gallstone pancreatitis Post-op diagnosis: same Procedure & Clinicians Procedure: Laparoscopic cholecystectomy with intraoperative cholangiogram Same procedure as scheduled: Yes Surgeon: Shin Jalloh Senior Business Analyst: Rayo Burr Anesthesia Type: General Operative Notes Procedure in detail: The patient was given preoperative Ancef. The patient was brought to the operating room, placed on the table in the supine position. General endotracheal anesthesia was induced. The abdomen was prepped and draped. A time-out was performed. We made a 1 cm infraumbilical incision. We dissected down to the base of the umbilical stalk using cautery. We grasped the umbilical stalk with a Angelica clamp to elevate the abdominal wall. We scored the fascia in the midline with cautery 1 cm. We pierced the peritoneum with a Peon clamp. The Anisa port was placed and the abdomen was insufflated to 15 mmHg. A 5 mm 30 degree laparoscopic was inserted. There was no evidence of any injury from the entry. Next, we placed 5 mm ports in the subxiphoid position and right upper quadrant at the midclavicular line and anterior axillary line. The patient was then positioned in reverse Trendelenburg and the table was tilted to the left. The colon was extremely dilated and distended but did not obscure the view of the gallbladder. The gallbladder was grasped at the dome and retracted cephalad. The gallbladder was quite thin-walled and did tear spilling some dark bile. We then dissected the cystic structures with a combination of hook cautery and blunt dissection. We obtained a critical view. Next, a cholangiogram was performed using the 6 [place] ureteral catheter. There was good flow of contrast into the duodenum and up to the hepatic bifurcation with no obvious filling defects. The cystic duct-common duct junction was well visualized. We then placed hemoclips on the cystic duct and artery and divided the cystic duct and artery sharply between the clips. The gallbladder was then dissected off the liver and placed in a specimen retrieval bag. We irrigated the right upper quadrant and all the aspirate returned clear. We then removed the 5 mm ports under direct vision we removed the Anisa port. We then injected some local into the fascia and closed the fascia with 2 interrupted 0 Vicryl sutures. The skin incisions were closed with 4 Monocryl and Steri-Strips were applied. Band-Aids were applied over the Steri-Strips. Rayo LEAL provided assistance with exposure, retraction and closure of incisions. EBL: 10 mL Specimen: Gallbladder Post-operative Condition: stable Disposition: PACU
[2022-10-28] MEDS: IOPAMIDOL 30 ML VIAL INJ (14:48)
--- NOTE | 2022-10-28 19:37 | PC.NURSE ---
Post-op: Pt off to the OR. Lap raffaele w/IOC, returned to floor. He feels good. Has no nausea. Denies need for pain medication. Son at bedside. Bandaids to wounds are w/spots of drainage and intact. Has voided since surgery.
[2022-10-29] VITALS (7 sets, daily range): BP systolic 131–155; BP diastolic 64–75; PULSE 68–98; RESP 18–20; TEMP 36.4–38; O2SAT 92–96
[2022-10-29] MEDS: OXYCODONE IR 5 MG TABLET PO ×4 (02:33→23:33)
--- NOTE | 2022-10-29 09:32 | PM.PN.1 ---
Subjective Subjective Date Patient Seen: 10/29/22 Time Patient Seen: 09:32 Interval history: Less feels better today. Still has some upper abdominal discomfort. Tolerating a diet. Exam Vital Signs (past 8 hours): - 10/29/22 02:00 10/29/22 05:48 10/29/22 08:27 Temperature 97.6 F 98.7 F 98.3 F Pulse Rate 82 76 79 Respiratory Rate 18 18 18 Blood Pressure 143/69 H 132/64 151/72 H Pulse Oximetry 92 93 92 Oxygen Flow Rate 0 0 0 Oxygen Delivery Method Nasal Cannula Oxygen Flow Rate 0 Const General: healthy appearing Objective Labs 10/28/22 05:35 10/28/22 05:35 [facility] Surgical History H/O vasectomy History of total hip replacement Hx of tonsillectomy Social History household members: spouse Smoking Status: Former smoker alcohol intake: current Assessment & Plan Assessment and plan (1) Gallstone pancreatitis: Status: Acute Plan Okay to discharge today.
--- NOTE | 2022-10-29 14:53 | P.PN_ITS ---
Subjective Subjective Interval history: Return of epigastric band like pain after low fat diet this morning and a fternoon. [place] palpitations with irregular heart beat, EKG pending. Exam Vital Signs (past 8 hours): - 10/29/22 08:27 10/29/22 07:50 Temperature 98.3 F Pulse Rate 79 Respiratory Rate 18 Blood Pressure 151/72 H Pulse Oximetry 92 Oxygen Delivery Method Room Air Oxygen Flow Rate 0 Oxygen Delivery Method Room Air Oxygen Flow Rate 0 Narrative Exam Narrative: Gen: alert, mildly uncomfortable Lungsd: clear bilaterally CV: tachycardic, irregularly irregular. Abd: soft, tender epigastrium, no distension. incisions clean. Ext: no edema Objective Labs 10/28/22 05:35 10/28/22 05:35 [facility] Surgical History H/O vasectomy History of total hip replacement Hx of tonsillectomy Social History household members: spouse Smoking Status: Former smoker alcohol intake: current Assessment & Plan Assessment & Plan narrative: 1. Acute biliary pancreatitis -this is pt's second episode in 8 years -abd CT: inflamed pancreas, no pancreatic mass/lesion -US: GB sludge -lap raffaele with Dr Jalloh on 10/29 -advanced to low fat diet, with worsened pain today. Will monitor on low fat to see if improvement. 2. Hypertension, hyperlipidemia -holding meds at this time 3. irregular heart beat - concerning for afib, will start metoprolol if confirmed. Labs ordered including troponin given recent surgery. DVT prevention: enoxaprin Dispo: PT/OT evaluations over family concern for weakness.
[2022-10-29 15:16] LABS: Add Manual Diff / Slide Review NO; Basophils Absolute Auto 0 /uL (0-100); Basophils Percent Auto 0.3 % (0-2); Eosinophils Absolute Auto 0 /uL (0-450); Eosinophils Percent Auto 0.3 % (2-4); Hematocrit 40.7 % (41-53); Lymphocytes Absolute Auto 1400 /uL (1100-4500); Lymphocytes Percent Auto 9.2 % (25-40); Mean Corpuscular HGB Conc 34.4 % (30-36); Mean Corpuscular Hemoglobin 29.5 PG (26-34); Mean Corpuscular Volume 85.7 fL (80-100); Monocytes Absolute Auto 1500 /uL (0-900); Neutrophils Absolute Auto 12200 /uL (1500-7000); Neutrophils Percent Auto 80.2 % (50-75); Platelet Count 209 X10^3/uL (150-400); Red Blood Cell Count 4.75 X10^6/uL (4.5-5.9); Red Cell Distribution Width 13.9 % (11.6-14.8); White Blood Cell Count 15.2 X10^3/uL (4.5-11.0)
--- NOTE | 2022-10-29 15:20 | OT.IPNOTE ---
OT amy received and pt on hold in A-fib RVR. To check on the pt tomorrow if pt is medically appropriate.
[2022-10-29 15:29] LABS: BUN Creatinine Ratio 19.7 (6-22); Blood Urea Nitrogen 15 mg/dL (9-20); Calcium 7.9 mg/dL (8.4-10.2); Carbon Dioxide 29 mmol/L (22-32); Chloride 98 mmol/L (98-107); Estimated Glomerular Filt Rate > 60 mL/min (>60); Glucose 109 mg/dL (80-110); HEMOLYSIS < 15 (0-50); Magnesium 1.9 mg/dL (1.6-2.3); Potassium 3.3 mmol/L (3.4-5.1); Sodium 133 mmol/L (137-145)
[2022-10-29 15:41] LABS: Troponin I 0.013 ng/mL (0.01-0.034)
--- NOTE | 2022-10-29 15:56 | OT.IPNOTE ---
Attempted to see pt for OT eval and in too much pain at this time. Pt requesting to be seen tomorrow. To check on the pt tomorrow.
--- NOTE | 2022-10-29 16:20 | PT.IIE ---
Current Diagnoses Biliary acute pancreatitis without necrosis or infection (10/26/22) Acute pancreatitis without necrosis or infection, unspecified (10/26/22) Surgery Performed Operation Date: 10/28/22 13:45 Actual Procedures p Laparoscopic Cholecystectomy with Intraoperative Cholangiograms - Shin Jalloh MD Surgical History (Last Reviewed 10/27/22 @ 03:54 by Lazarus Herrera MD) H/O vasectomy History of total hip replacement Hx of tonsillectomy Physical Therapy Inpatient Evaluation/Re-Eval M1 PT/OT-IP Prior Functional Status Start: 10/29/22 15:51 Freq: NEEDED Status: Active Protocol: Document 10/29/22 15:51 ES (Rec: 10/29/22 16:20 ES [id number]) Medical Review Prior Functional Status Medical History Reviewed Yes Diet/Fluid Consistency Regular Communication Indep Mobility and Gait Indep without AD. Was walking community distances, takes walks along the beach. Activities of Daily Living and IADL's Indep Social History Household Members spouse Living Arrangements House Number of Floors (Floors) Two Floors Number of Stairs To Enter/Railing? No stairs to enter. Split level home with 7 steps down to lower level with no rails. Stairs are 12' wide. Bedroom and bathroom are on one level, kitchen is on separate level. Plans to install railing and ramp into downstairs level for when she returns home. Additional Social History Comment Daughter is visiting from [place] until Thursday. M2 PT-IP Current Condition Start: 10/29/22 15:51 Freq: NEEDED Status: Active Protocol: Document 10/29/22 15:51 ES (Rec: 10/29/22 16:20 ES [id number]) Physical Therapy Current Condition Current Condition Evaluation Date 10/29/22 Treatment Diagnosis Pancreatitis, s/p lap raffaele , abdominal pain, weakness Onset Date 10/29/22 M3 PT-IP Subjective Start: 10/29/22 15:51 Freq: NEEDED Status: Active Protocol: Document 10/29/22 15:51 ES (Rec: 10/29/22 16:20 ES [id number]) Subjective Physical Therapy Visit Type Type Initial Evaluation Visit Start Time 14:50 Visit Stop Time 15:47 Total Visit Minutes 35 Notes Split visit 14:50-15:06 and 15 :28-15:47 Physical Therapy Visit Comments Patient Comments Patient seen with daughter and then son present. Patient reported having some abdominal pain but agreeable to work with PT. Daughter expressed concern about patient going home and being able to tolerate/be safe with ADL's and getting up/down stairs. Therapy Pain Assessment Pain When Pain Assessed At Rest Pain Present Pain Present Pain Reported Location Upper Medial Abdomen Intensity 3 Scale Used Numeric (0 - 10) Pain Management Techniques Re-positioning M4 PT-IP Mobility and Gait Start: 10/29/22 15:51 Freq: NEEDED Status: Active Protocol: Document 10/29/22 15:51 ES (Rec: 10/29/22 16:20 ES [id number]) PT-Bed Mobility Assessment Rolling Type of Rolling Log Rolling Level of Assist Standby Assistance Supine to Sit Supine to Sit Standby Assistance Sit to Supine Sit to Supine Standby Assistance Scooting Scooting to Edge of Bed Independent Scooting Up and Down in Bed Independent PT-Transfer Assessment Sit to and From Stand Sit to and from Stand Standby Assistance Equipment Transfer Assistive Device None Transfers Transfer Destination Bed Transfer Technique ambulated Transfer Ability Level of Assist Standby Assistance Comments Mobility Comments Instructed patient in log rolling technique to reduce abdominal strain. Performed bed mobility with HOB flat and no use of rail. Patient required extra time to complete due to pain. Gait Assessment Gait Gait Assistance Required: Standby Assistance Distance (Feet) 250 Assistive Devices Assistive Device None Gait Deviations General Gait Pattern Flexed Trunk,Wide Based Gait Factors Limiting Gait Function Factors Limiting Gait Function Pain,Poor Balance Comments Gait Comments Patient ambulated in hallway with close supervision due to afib. He demonstrated wide ELIZABETH and flexed posture due to abdominal pain. Pre and post walk HR was in 90's. PT-Balance Assessment Sitting Balance and Reactions Static Sitting Balance Ability Normal Dynamic Sitting Balance Ability Normal Standing Balance and Reactions Static Standing Balance Ability Good Dynamic Standing Balance Ability Fair Device Used None Functional Assessments Other Functional Tests Performed AM-PAC 6 Clicks Basic Mobility t-score = 56.93 (>42.9 predicts home d/c) M5 PT-IP Objective Assessments Start: 10/29/22 15:51 Freq: NEEDED Status: Active Protocol: Document 10/29/22 15:51 ES (Rec: 10/29/22 16:20 ES [id number]) Orientation Orientation/Cognition Level of Alertness Alert Orientation Name,Age,Birthday,Month,Date, Year,Day of Week,Place, Situation Language Function Ability No Deficits Noted Safety Awareness Understands Safety Issues Memory Description No Deficits Noted Gross Range of Motion Upper Extremity ROM Assessment Within Functional Limits Lower Extremity ROM Assessment Within Functional Limits Strength Upper Extremity Strength Assessment Within Functional Limits Lower Extremity Strength Assessment Within Functional Limits Comments Strength Comments Decreased abdominal strength noted during bed mobility. Coordination Assessment Gross Coordination Gross Coordination WNL Sensation Assessment Sensation Gross Sensation WNL M6 PT-IP Treatment Start: 10/29/22 15:51 Freq: NEEDED Status: Active Protocol: Document 10/29/22 15:51 ES (Rec: 10/29/22 16:20 ES [id number]) Physical Therapy Treatment Education Education Provided Safety M7 PT-IP Assessment and Plan Start: 10/29/22 15:51 Freq: NEEDED Status: Active Protocol: Document 10/29/22 15:51 ES (Rec: 10/29/22 16:20 ES [id number]) PT Summary Assessment and Plan Potential Rehabilitation Potential Excellent Status of Condition at Evaluation Unstable Summary Impairments Pain,Balance,Bed Mobility,Gait ,Activity Tolerance Assessment Summary Patient is a 77 year old male POD 0 s/p lap raffaele. He demonstrates generalized weakness and decreased balance along with pain and unstable HR due to afib. After PT obtained history, patient went into afib with RVR according to nursing, so did not have patient mobilize. After HR returned to acceptable rate, MD cleared patient to ambulate with PT. Patient had some dizziness and tunnel vision upon initial standing. BP taken and was 130's/60's sitting, 140's/70's in standing. HR was in 90's pre and post ambulation. Patient demonstrated the ability to perform all mobility tasks with SBA/supervision without AD. He was mildly unsteady with standing activity and ambulation and may benefit from use of AD to reduce fall risk at home. Patient would benefit from further therapy for continued bed mobility training, gait training with AD, and stair training to be able to d/c home safely with family assistance initially. He may benefit from OP PT to restore function to prior level. Goals Bed Mobility Goal Independent Transfer Goal Independent,Cane,Front Wheeled Walker Gait Goal Independent,Cane,Front Wheel Walker Gait Distance 300 Other Goals Patient will be able to ascend /descend 7 stairs with LRAD and no rail. Days to Meet Goals 3 Frequency of Treatment Frequency Of Treatment Once a Day Treatment Plan Physical Therapy Treatment Plan Bed Mobility Training,Gait Training,Therapeutic Exercise, Balance Retraining,Discharge Planning Precautions Abdominal Surgery Precautions Log Roll,Lifting Restrictions, Gait Belt above Incisional Area Recommendations To Nursing Amount of Assist Needed Standby Assistance Discharge Recommendations PT Discharge Recommendations Home with Assistance Equipment Needed for Home Before May need FWW/cane Discharge Transportation Needs at Discharge Private Vehicle
[2022-10-29] MEDS: POTASSIUM CHLORIDE 20 MEQ TAB 40 MEQ PO ×2 (16:42→22:47)
[2022-10-29] MEDS: METOPROLOL IR 25 MG TABLET PO (16:43)
--- NOTE | 2022-10-29 17:07 | CM.DPC ---
DCP Continued: TERRAZZO WORKER reviewed EMR. Per Dr. Jalloh progress note 10.29, provider reported patient should be good to d/c today home. TERRAZZO WORKER entered room and reintroduced self and role. Patient was resting in his bed and appeared A/Ox4. Patient reported he was feeling good and walked for 4 laps around the floor but started to feel discomfort after that. Patient at the time reported being okay with going home based on how he was feeling in the morning 10.29.23. Daughter Sandra ([phone]) called this desk around 1400 and lvm stating her and father have concerns for his d/c plan. Patient daughter reports patient was d/c from her leg surgery at [place] to [facility] today, 10.29. Patient reports his heart started to race and he felt weak standing up and felt like he needed to hold on to something to get up and walk around the room or go the bathroom. Patient and daughter have concerns for patient discharging home in his current state due to patient living on [facility]. Patient daughter reports she does not believe she can care for his current needs. Daughter is staying until Thursday and is flying back to [place]. TERRAZZO WORKER told patient and family she would see about getting a PT/OT eval to inquire about their thoughts for a safe d/c home. Patient and daughter appeared appreciative of this and reported they would feel safer to d/c with PT/OT input. TERRAZZO WORKER spoke with provider. Provider reported patient was in afib and would like to keep patient another night to monitor his heart rate. Provider placed PT/OT orders for an eval/treat to gather further information for a safe d/c plan. TERRAZZO WORKER updated PT/OT on current case. From OT note, patient is in too much pain at this time and will see him tomorrow. Per PT note, their d/c recommendation is home with assistance. May need FWW or cane. Plan: d/c home when medically stable. PT/OT will work with him again tomorrow. [facility] CM team continue to follow closely. TERRIE Calloway
--- NOTE | 2022-10-29 17:53 | DI.RAD.S_ITS ---
PROCEDURE: XR CHEST 1V INDICATIONS: fever TECHNIQUE: One view of the chest was acquired. COMPARISON: [facility], CR, XR CHEST 2V, 12/31/2020, 14:41. FINDINGS: Surgical changes and devices: None. Lungs and pleura: Diffuse interstitial prominence. Loss of vascular distinctness. Suggestion of central pulmonary vascular congestion. Streaky bibasilar opacities. Suspected small right pleural effusion. No pneumothorax. Mediastinum: Mediastinal contours appear normal. Heart size is normal. Bones and chest wall: No suspicious bony lesions. Overlying soft tissues appear unremarkable. IMPRESSION: Diffuse interstitial prominence and streaky bibasilar opacities may represent an infectious/inflammatory process versus pulmonary edema. Dictated by: James Vivas M.D. on 10/29/2022 at 19:44 Approved by: James Vivas M.D. on 10/29/2022 at 19:47
[2022-10-29] MEDS: ACETAMINOPHEN 325 MG TABLET 650 MG PO (17:58)
[2022-10-29 19:38] LABS: Appearance Urine UA CLEAR; Bilirubin Urine UA NEGATIVE (NEGATIVE); Color Urine UA YELLOW; Glucose Urine UA NEGATIVE (Negative); Ketones Urine UA TRACE (NEGATIVE); Leukocyte Esterase Urine UA NEGATIVE (NEGATIVE); Nitrite Urine UA NEGATIVE (Negative); Occult Blood Urine UA TRACE-INTACT (Negative); Protein Urine UA 1+ (Negative)
[2022-10-29 20:17] LABS: Bacteria Urine None Seen; RBC Urine None Seen (0-5/HPF); Squamous Epithelial Cell Urine 0-1 /HPF (0-5/HPF); WBC Urine 0-1/HPF (0-5/HPF)
[2022-10-29 20:18] LABS: Culture Indicated Urine Cult Not Indicated
[2022-10-29] MEDS: polyethylene glycoL 3350 17 GM POWD.PACK PO (22:49)
[2022-10-30] VITALS: BP 144/66; PULSE 69; RESP 16; TEMP 36.8; O2SAT 93
[2022-10-30 04:00] VITALS: BP 147/58; PULSE 77; RESP 18; TEMP 37.4; O2SAT 94
[2022-10-30] MEDS: OXYCODONE IR 5 MG TABLET PO (05:09)
[2022-10-30] MEDS: ACETAMINOPHEN 325 MG TABLET 650 MG PO ×2 (05:10→17:33)
[2022-10-30 05:31] LABS: Add Manual Diff / Slide Review NO; Basophils Absolute Auto 0 /uL (0-100); Basophils Percent Auto 0.3 % (0-2); Eosinophils Absolute Auto 100 /uL (0-450); Eosinophils Percent Auto 0.8 % (2-4); Hematocrit 39.6 % (41-53); Hemoglobin 13.6 g/dL (13.5-17.5); Lymphocytes Absolute Auto 1500 /uL (1100-4500); Lymphocytes Percent Auto 12.3 % (25-40); Mean Corpuscular HGB Conc 34.3 % (30-36); Mean Corpuscular Hemoglobin 29.3 PG (26-34); Mean Corpuscular Volume 85.4 fL (80-100); Monocytes Absolute Auto 1000 /uL (0-900); Neutrophils Absolute Auto 9400 /uL (1500-7000); Neutrophils Percent Auto 78.6 % (50-75); Platelet Count 207 X10^3/uL (150-400); Red Blood Cell Count 4.64 X10^6/uL (4.5-5.9); Red Cell Distribution Width 13.6 % (11.6-14.8); White Blood Cell Count 11.9 X10^3/uL (4.5-11.0)
[2022-10-30 05:51] LABS: Magnesium 1.8 mg/dL (1.6-2.3)
[2022-10-30 05:52] LABS: BUN Creatinine Ratio 20.3 (6-22); Blood Urea Nitrogen 16 mg/dL (9-20); Calcium 7.9 mg/dL (8.4-10.2); Carbon Dioxide 27 mmol/L (22-32); Chloride 100 mmol/L (98-107); Estimated Glomerular Filt Rate > 60 mL/min (>60); Glucose 91 mg/dL (80-110); HEMOLYSIS < 15 (0-50); Potassium 4.3 mmol/L (3.4-5.1); Sodium 131 mmol/L (137-145)
[2022-10-30] MEDS: SENNOSIDES 8.6 MG TABLET PO (08:16)
[2022-10-30] MEDS: DOCUSATE 100 MG CAPSULE PO (08:16)
--- NOTE | 2022-10-30 08:30 | OT.IP.EVAL ---
Current Diagnoses Biliary acute pancreatitis without necrosis or infection (10/26/22) Acute pancreatitis without necrosis or infection, unspecified (10/26/22) Surgery Performed Operation Date: 10/28/22 13:45 Actual Procedures p Laparoscopic Cholecystectomy with Intraoperative Cholangiograms - Shin Jalloh MD Surgical History (Last Reviewed 10/27/22 @ 03:54 by Lazarus Herrera MD) H/O vasectomy History of total hip replacement Hx of tonsillectomy Occupational Therapy Inpatient Evaluation/Re-Eval M1 PT/OT-IP Prior Functional Status Start: 10/30/22 08:37 Freq: NEEDED Status: Active Protocol: Document 10/30/22 08:05 [facility] (Rec: 10/30/22 09:08 [facility] [id number]) Medical Review Prior Functional Status Medical History Reviewed Yes Diet/Fluid Consistency Regular Communication Indep Mobility and Gait Indep without AD. Was walking community distances, takes walks along the beach. Activities of Daily Living and IADL's Indep Social History Household Members spouse Living Arrangements House Number of Floors (Floors) Two Floors Number of Stairs To Enter/Railing? No stairs to enter. Split level home with 7 steps down to lower level with no rails. Stairs are 12' wide. Bedroom and bathroom are on one level, kitchen is on separate level. Plans to install railing and ramp into downstairs level for when she returns home. Home Environment Walk in Shower Home Equipment Cashier Checker Additional Social History Comment Daughter is visiting from [place] until Thursday. M2 OT-IP Current Condition Start: 10/30/22 08:37 Freq: Status: Active Protocol: Document 10/30/22 08:05 [facility] (Rec: 10/30/22 09:08 [facility] [id number]) Occupational Therapy Current Condition Current Condition Evaluation Date 10/30/22 Treatment Diagnosis Pancreatitis, abdominal pain. M3 OT- IP Subjective and Pain Start: 10/30/22 08:37 Freq: Status: Active Protocol: Document 10/30/22 08:05 [facility] (Rec: 10/30/22 09:08 [facility] [id number]) OT- Subjective Occupational Therapy Visit Type Type Initial Evaluation Visit Start Time 08:05 Visit Stop Time 08:30 Total Visit Minutes 25 Occupational Therapy Visit Comments Patient Comments Pt agreed to get up and states feeling much better today. Patient/Caregiver Goals To go home. OT Pain Assessment Pain When Pain Assessed At Rest Pain Present Pain Present Pain Reported Location Upper Medial Abdomen Intensity 2 Scale Used Numeric (0 - 10) M4 OT- IP ADL's Start: 10/30/22 08:37 Freq: Status: Active Protocol: Document 10/30/22 08:05 [facility] (Rec: 10/30/22 09:08 [facility] [id number]) OT [id number] Comments OT Self-Feeding Comments Not performed, no issues anticipated. OT ADL-Grooming Comments OT Grooming Comments Pt states has been able to do. OT ADL-Dressing General Eval Lower Body Dressing Ability Standby Assistance Comments OT Dressing Comments Pt able to do but will benefit from surfaces to hold to for balance when standing while donning clothing over his hips . OT ADL-Toileting Comments OT Toileting Comments Not performed. OT ADL-Bathing Comments OT Bathing Comments Pt will benefit from a shower chair for his balance especially if having pain. M5 OT- IP IADL's Start: 10/30/22 08:37 Freq: Status: Active Protocol: Document 10/30/22 08:05 [facility] (Rec: 10/30/22 09:08 [facility] [id number]) OT-Instrumental Activities of Daily Living Deficits IADL Deficits Identified Deficits Home Safety Awareness Awareness of Need for Assistance at Home Good Awareness Home Safety Comments Pt's family to stay with him initially. M6 OT- IP Functional Cognition Start: 10/30/22 08:37 Freq: Status: Active Protocol: Document 10/30/22 08:05 [facility] (Rec: 10/30/22 09:08 [facility] [id number]) Cognitive Factors Limiting Selfcare Function Cognitive Ability Level of Alertness Alert Patient Orientation Name,Age,Birthday,Month,Date, Year,Day of Week,Place, Situation Attention Span Ability Capable of Focused Attention, Capable of Sustained Attention Ability to Follow Commands Able to Follow One Step Commands Cognitive Comments Cognitive Assessment Comments Pt able to follow directions for mobility and ADL needs. M7 OT- IP Mobility and Balance Start: 10/30/22 08:37 Freq: Status: Active Protocol: Document 10/30/22 08:05 [facility] (Rec: 10/30/22 09:08 [facility] [id number]) OT- Bed Mobility Assessment Supine to Sit Supine to Sit Assist Independent Sit to Supine Sit to Supine Assist Independent OT-Transfer Assessment Sit to and From Stand Sit to and from Stand Independent Transfers Transfer Ability Standby Assistance Technique Transfer Destination Bed,Car Transfer Technique Stand Step Pivot Devices Transfer Assistive Devices None,Front Wheeled Walker,4 Wheeled Walker OT- Gait Assessment Comments Gait Ability Comments Pt tends to furniture cruise and does better with with FWW . Was able to try the 4ww but pt states prefers the fww. OT- Balance Assessment Sitting Balance and Reactions Static Sitting Balance Ability Normal Dynamic Sitting Balance Ability Normal Standing Balance and Reactions Static Standing Balance Ability Good Dynamic Standing Balance Ability Fair M8 OT- IP Objective Assessments Start: 10/30/22 08:37 Freq: Status: Active Protocol: Document 10/30/22 08:05 [facility] (Rec: 10/30/22 09:08 [facility] [id number]) OT Gross Range of Motion Upper Extremity Range of Motion Assessment Within Functional Limits M9 OT- IP Assessment and Plan Start: 10/30/22 08:37 Freq: Status: Active Protocol: Document 10/30/22 08:05 [facility] (Rec: 10/30/22 09:08 [facility] [id number]) OT Summary Assessment and Plan Potential Rehabilitation Potential Good Analytic Complexity at Evaluation Low Summary OT Impairments Pain,Balance,Functional Mobility,Bathing,Shower Transfers Progress Towards Goals Progressing Toward Goals Assessment Summary Pt low complexity and main barrier is pain. Able to suggest for pt to get a fww and shower chair for home use. Pt to have assist initially at home from his family. Goals Dressing Goal Independent Bathing Goal Independent Shower Transfer Goal Independent Days to Meet Goals 2 Frequency of Treatment Frequency Of Treatment Once a Day Treatment Plan OT Treatment Plan ADL Training,Functional Mobility,Patient/Family Education,Discharge Planning Other Treatment Recommendations and Next shower if still here Treatment Focus Discharge Recommendations OT Discharge Recommendations Home with Assistance Home Equipment Needs fww, shower chair Transportation Needs at Discharge Private Vehicle
[2022-10-30 08:59] VITALS: BP 129/65; PULSE 80; RESP 16; TEMP 36.7; O2SAT 94
[2022-10-30] MEDS: PIPERACILLIN/TAZO 4.5 GM in SODIUM CHLORIDE 0.9% 100 ML IV (10:13)
--- NOTE | 2022-10-30 11:37 | DI.ECHO.S_ITS ---
[facility]---------+ [facility] +---------+ : : [address] [place] : : : : [id number] : : : : Phone: [phone]+ Echocardiogram Report + + :Name: ELLE ORTIZ Study Date: 10/30/2022 Height: 69 in : :[facility] ReadingLocation: Weight: 180 lb : : Gender: Male BSA: 2.0 m2 : :: 1945 Age: 77 yrs BP: 129/65 mmHg: :Reason For Study: TACHYARRYTHMIA, PALPITATIONS, SHORTNESS OF : :BREATH : :Ordering Physician: МАРИЯ, : :RAFAT Motley Performed By: Gabrielle Mccord : :Referring: RAFAT HSIEH : + + Interpretation Summary The ejection fraction is estimated to be 60-65%. There is mild mitral regurgitation. Chordal MAIKEL is noted There is mild aortic regurgitation. There is mild tricuspid regurgitation. Right ventricular systolic pressure is estimated to be 28 mmHg plus the clinically estimated CVP which cannot be estimated on this exam. The ascending aorta is moderately enlarged. Procedure: A two-dimensional transthoracic echocardiogram with color flow and Doppler was performed. The study quality was technically adequate. There is no prior echocardiogram noted for this patient. The patient was in sinus rhythm with heart rates between 62-65 bpm during the exam. Left Ventricle: The left ventricle is normal in size and wall thickness. The ejection fraction is estimated to be 60-65%. Left ventricular wall motion is normal. Right Ventricle: The right ventricle is mildly dilated. Atria: The left atrium is moderately dilated. Right atrial size is normal. There is no Doppler evidence for an interatrial shunt. Mitral Valve: The mitral valve leaflets are slightly calcified. There is mild mitral regurgitation. Chordal MAIKEL is noted. Aortic Valve: The aortic valve is trileaflet. The aortic valve opens well. There is no aortic valve stenosis. There is mild aortic regurgitation. Tricuspid Valve: The tricuspid valve is not well visualized, but is grossly normal. There is mild tricuspid regurgitation. Right ventricular systolic pressure is estimated to be 28 mmHg plus the clinically estimated CVP which cannot be estimated on this exam. Pulmonic Valve: The pulmonic valve leaflets are thin and pliable; valve motion is normal. There is trace pulmonic regurgitation. Great Vessels: The aortic root is severely dilated. The ascending aorta is moderately enlarged. The inferior vena cava was not well visualized. Pericardium/ Pleura There is no pericardial effusion. There is no pleural effusion. MMode/2D Measurements & Calculations LVIDd: 5.3 cm LVOT diam: 2.1 cm LVIDs: 3.3 cm Ao root diam: 5.4 cm FS: 37.2 % asc Aorta Diam: 4.2 cm IVSd: 0.77 cm Ao Arch Diam (Prox Trans): 3.6 cm LVPWd: 0.97 cm LV zarate. diameter/BSA (cm/m^2): 2.7 LV sys. diameter/BSA (cm/m^2): 1.7 LA A2 area: 24.7 cm2 RA long axis: 5.7 cm LA A4 area: 23.2 cm2 RA area: 19.6 cm2 LA length (vol): 5.7 cm RA vol: 57.1 ml LA vol: 85.1 ml RA : 28.9 ml/m2 LA vol index: 43.1 ml/m2 RVD1 (basal): 4.7 cm RVD2 (mid): 3.9 cm TAPSE: 2.3 cm Doppler Measurements & Calculations Ao V2 max: 143.9 cm/sec MV E max uday: 79.0 cm/sec Ao V2 mean: 110.3 cm/sec MV A max uday: 116.0 cm/sec Ao max P.3 mmHg MV E/A: 0.68 Ao mean P.2 mmHg Med Peak E' Uday: 5.9 cm/sec Ao V2 VTI: 30.2 cm E/E' med: 13.3 Lat Peak E' Uday: 4.8 cm/sec E/E' lat: 16.6 E/e' average: 15.0 MV dec time: 0.21 sec TR max uday: 262.0 cm/sec TR max P.5 mmHg PA V2 max: 69.6 cm/sec PA V2 mean: 54.6 cm/sec PA mean P.3 mmHg PA pr(Accel): 36.2 mmHg Reading Physician:06:00 PM
[2022-10-30] MEDS: FUROSEMIDE 20 MG/2 ML VIAL IV (12:05)
[2022-10-30 12:30] VITALS: BP 126/58; PULSE 69; RESP 24; TEMP 36.7; O2SAT 97
--- NOTE | 2022-10-30 12:55 | CM.DPNOTE ---
DCP Note Patient and family request a short stay at [facility], where patient's spouse is currently recovering from surgery. Referral discussed who has accepted patient upon discharge. Patient can use his MCR benefit and so does not need to be pay privately as family had originally thought PASRR completed in anticipation of DC to [facility], possibly tomorrow Following for coordination JW
[2022-10-30] MEDS: METOPROLOL IR 25 MG TABLET PO ×2 (13:52→17:35)
--- NOTE | 2022-10-30 14:42 | PT.IPTN ---
Current Diagnoses Biliary acute pancreatitis without necrosis or infection (10/26/22) Acute pancreatitis without necrosis or infection, unspecified (10/26/22) Surgery Performed Operation Date: 10/28/22 13:45 Actual Procedures p Laparoscopic Cholecystectomy with Intraoperative Cholangiograms - Shin Jalloh MD Physical Therapy Treatment Note M2 PT-IP Current Condition Start: 10/29/22 15:51 Freq: NEEDED Status: Active Protocol: Document 10/29/22 15:51 ES (Rec: 10/29/22 16:20 ES [id number]) Physical Therapy Current Condition Current Condition Evaluation Date 10/29/22 Treatment Diagnosis Pancreatitis, s/p lap raffaele , abdominal pain, weakness Onset Date 10/29/22 M3 PT-IP Subjective Start: 10/29/22 15:51 Freq: NEEDED Status: Active Protocol: Document 10/30/22 14:24 KS (Rec: 10/30/22 16:19 KS [id number]) Subjective Physical Therapy Visit Type Type Treatment Note Visit Start Time 14:24 Visit Stop Time 14:42 Total Visit Minutes 18 Number of TECHNICAL AIDE Visits 1 M4 PT-IP Mobility and Gait Start: 10/29/22 15:51 Freq: NEEDED Status: Active Protocol: Document 10/30/22 14:24 KS (Rec: 10/30/22 16:19 KS [id number]) PT-Bed Mobility Assessment Rolling Type of Rolling Log Rolling Level of Assist Standby Assistance Supine to Sit Supine to Sit Standby Assistance Sit to Supine Sit to Supine Standby Assistance Scooting Scooting to Edge of Bed Independent Scooting Up and Down in Bed Independent PT-Transfer Assessment Sit to and From Stand Sit to and from Stand Standby Assistance Equipment Transfer Assistive Device Gait Belt,Front Wheeled Walker Transfers Transfer Destination Bed Transfer Technique ambulated Transfer Ability Level of Assist Standby Assistance Comments Mobility Comments Cues for logroll, used FWW for balance and energy conservation. SBA to CGA troughout treatment. Ambulated ~60 ft. Gait Assessment Gait Gait Assistance Required: Standby Assistance Distance (Feet) 60 Assistive Devices Assistive Device None Gait Deviations General Gait Pattern Flexed Trunk,Wide Based Gait Factors Limiting Gait Function Factors Limiting Gait Function Pain,Poor Balance Comments Gait Comments Pt ambulated w/ FWW this afternoon for energy conservation and balance support. PT-Balance Assessment Sitting Balance and Reactions Static Sitting Balance Ability Normal Dynamic Sitting Balance Ability Normal Standing Balance and Reactions Static Standing Balance Ability Good Dynamic Standing Balance Ability Good Device Used FWW M5 PT-IP Objective Assessments Start: 10/29/22 15:51 Freq: NEEDED Status: Active Protocol: Document 10/29/22 15:51 ES (Rec: 10/29/22 16:20 ES [id number]) Orientation Orientation/Cognition Level of Alertness Alert Orientation Name,Age,Birthday,Month,Date, Year,Day of Week,Place, Situation Language Function Ability No Deficits Noted Safety Awareness Understands Safety Issues Memory Description No Deficits Noted Gross Range of Motion Upper Extremity ROM Assessment Within Functional Limits Lower Extremity ROM Assessment Within Functional Limits Strength Upper Extremity Strength Assessment Within Functional Limits Lower Extremity Strength Assessment Within Functional Limits Comments Strength Comments Decreased abdominal strength noted during bed mobility. Coordination Assessment Gross Coordination Gross Coordination WNL Sensation Assessment Sensation Gross Sensation WNL M6 PT-IP Treatment Start: 10/29/22 15:51 Freq: NEEDED Status: Active Protocol: Document 10/30/22 14:24 KS (Rec: 10/30/22 16:19 KS [id number]) Physical Therapy Treatment Education Education Provided Safety M7 PT-IP Assessment and Plan Start: 10/29/22 15:51 Freq: NEEDED Status: Active Protocol: Document 10/30/22 14:24 KS (Rec: 10/30/22 16:19 KS [id number]) PT Summary Assessment and Plan Potential Rehabilitation Potential Excellent Summary Impairments Pain,Balance,Bed Mobility,Gait ,Activity Tolerance Progress Towards Goals Progressing Toward Goals Assessment Summary Pt has decreased tolerance for activity currently, but only requires SBA for bed mobility and transfers and ambulation w / FWW. He does not use a FWW at baseline, but currently feels safer using it due to some weakness and abdominal pain. If going home, pt will need to complete stair training. Goals Bed Mobility Goal Independent Transfer Goal Independent,Cane,Front Wheeled Walker Gait Goal Independent,Cane,Front Wheel Walker Gait Distance 300 Other Goals Patient will be able to ascend /descend 7 stairs with LRAD and no rail. Days to Meet Goals 3 Frequency of Treatment Frequency Of Treatment Once a Day Treatment Plan Physical Therapy Treatment Plan Bed Mobility Training,Gait Training,Therapeutic Exercise, Balance Retraining,Discharge Planning Precautions Abdominal Surgery Precautions Log Roll,Lifting Restrictions, Gait Belt above Incisional Area Recommendations To Nursing Amount of Assist Needed Standby Assistance Discharge Recommendations PT Discharge Recommendations Home with Assistance Equipment Needed for Home Before May need FWW/cane Discharge Transportation Needs at Discharge Private Vehicle
--- NOTE | 2022-10-30 14:46 | PM.PN.1 ---
Exam Vital Signs (past 8 hours): - 10/30/22 08:59 10/30/22 12:30 Temperature 98.1 F 98.1 F Pulse Rate 80 69 Respiratory Rate 16 24 Blood Pressure 129/65 126/58 L Pulse Oximetry 94 97 Oxygen Delivery Method Room Air Oxygen Flow Rate 0 Narrative Exam Narrative: Gen: alert, mildly uncomfortable Lungsd: clear bilaterally CV: tachycardic, irregularly irregular. Abd: soft, tender epigastrium, no distension. incisions clean. Ext: no edema Objective Labs 10/30/22 04:45 10/30/22 04:45 Labs: Laboratory Results - last 24 hr 10/29/22 10/29/22 10/29/22 15:10 15:10 19:20 WBC 15.2 H RBC 4.75 Hgb 14.0 Hct 40.7 L MCV 85.7 MCH 29.5 MCHC 34.4 RDW 13.9 Plt Count 209 Neut % (Auto) 80.2 H Lymph % (Auto) 9.2 L [place] % (Auto) 10.0 Eos % (Auto) 0.3 L Baso % (Auto) 0.3 Neut # (Auto) 68289 H Lymph # (Auto) 1400 [place] # (Auto) 1500 H Eos # (Auto) 0 Baso # (Auto) 0 Sodium 133 L Potassium 3.3 L Chloride 98 Carbon Dioxide 29 BUN 15 Creatinine 0.76 Estimated GFR > 60 BUN/Creatinine Ratio 19.7 Glucose 109 Calcium 7.9 L Magnesium 1.9 Troponin I 0.013 Urine Color Yellow Urine Appearance Clear Urine pH 7.0 Ur Specific [place] 1.020 Urine Protein 1+ H Urine Glucose (UA) Negative Urine Ketones Trace H Urine Occult Blood Trace-intact Urine Nitrate Negative Urine Bilirubin Negative Urine Urobilinogen 1.0 Ur Leukocyte Esterase Negative Urine RBC None seen Urine WBC 0-1/hpf Ur Squamous Epith Cells 0-1 /hpf Urine Bacteria None seen Ur Culture Indicated? Cult not indicated 10/30/22 10/30/22 10/30/22 04:45 04:45 04:45 WBC 11.9 H RBC 4.64 Hgb 13.6 Hct 39.6 L MCV 85.4 MCH 29.3 MCHC 34.3 RDW 13.6 Plt Count 207 Neut % (Auto) 78.6 H Lymph % (Auto) 12.3 L [place] % (Auto) 8.0 Eos % (Auto) 0.8 L Baso % (Auto) 0.3 Neut # (Auto) 9400 H Lymph # (Auto) 1500 [place] # (Auto) 1000 H Eos # (Auto) 100 Baso # (Auto) 0 Sodium 131 L Potassium 4.3 Chloride 100 Carbon Dioxide 27 BUN 16 Creatinine 0.79 Estimated GFR > 60 BUN/Creatinine Ratio 20.3 Glucose 91 Calcium 7.9 L Magnesium 1.8 Troponin I Urine Color Urine Appearance Urine pH Ur Specific [place] Urine Protein Urine Glucose (UA) Urine Ketones Urine Occult Blood Urine Nitrate Urine Bilirubin Urine Urobilinogen Ur Leukocyte Esterase Urine RBC Urine WBC Ur Squamous Epith Cells Urine Bacteria Ur Culture Indicated? PFSH Surgical History H/O vasectomy History of total hip replacement Hx of tonsillectomy Social History household members: spouse Smoking Status: Former smoker alcohol intake: current Assessment & Plan Assessment & Plan narrative: 1. Acute gallstone pancreatitis -this is pt's second episode in 8 years -abd CT: inflamed pancreas, no pancreatic mass/lesion -US: GB sludge -lap raffaele with Dr Jalloh completed on 10/29 -advanced to low fat diet, tolerating well 2. Hypertension, hyperlipidemia -resume home meds 3. SVT -having intermittent sustained runs of SVT on tele with HR in 160's, not A-fib -echo ordered -metoprolol IV 5mg PRN for HR >130 -start po metop tart 25mg BID 4. Fever, SOB -had one temp of 100.4F -CXR reads as infectious vs inflamm, pulm edema -start zosyn until blood cultures finalize -give IV lasix 20mg daily for likely volume overload from IVF for pancreatitis DVT prevention: enoxaprin Dispo: Will go to [employer] as private pay in 1-2 days.
[2022-10-30] MEDS: MAGNESIUM SULFATE 2 GM/50 ML PIGGYBACK IV (15:07)
--- NOTE | 2022-10-30 15:20 | PM.PN.1 ---
Subjective Subjective Date Patient Seen: 10/30/22 Time Patient Seen: 15:20 Interval history: Feeling rather bloated and uncomfortable today. He has passed aric. Exam Vital Signs (past 8 hours): - 10/30/22 08:59 10/30/22 12:30 Temperature 98.1 F 98.1 F Pulse Rate 80 69 Respiratory Rate 16 24 Blood Pressure 129/65 126/58 L Pulse Oximetry 94 97 Oxygen Delivery Method Room Air Oxygen Flow Rate 0 Narrative Exam Narrative: Abdomen soft Objective Labs 10/30/22 04:45 10/30/22 04:45 Labs: Laboratory Results - last 24 hr 10/29/22 10/29/22 10/29/22 15:10 15:10 19:20 WBC 15.2 H RBC 4.75 Hgb 14.0 Hct 40.7 L MCV 85.7 MCH 29.5 MCHC 34.4 RDW 13.9 Plt Count 209 Neut % (Auto) 80.2 H Lymph % (Auto) 9.2 L [place] % (Auto) 10.0 Eos % (Auto) 0.3 L Baso % (Auto) 0.3 Neut # (Auto) 55280 H Lymph # (Auto) 1400 [place] # (Auto) 1500 H Eos # (Auto) 0 Baso # (Auto) 0 Sodium 133 L Potassium 3.3 L Chloride 98 Carbon Dioxide 29 BUN 15 Creatinine 0.76 Estimated GFR > 60 BUN/Creatinine Ratio 19.7 Glucose 109 Calcium 7.9 L Magnesium 1.9 Troponin I 0.013 Urine Color Yellow Urine Appearance Clear Urine pH 7.0 Ur Specific [place] 1.020 Urine Protein 1+ H Urine Glucose (UA) Negative Urine Ketones Trace H Urine Occult Blood Trace-intact Urine Nitrate Negative Urine Bilirubin Negative Urine Urobilinogen 1.0 Ur Leukocyte Esterase Negative Urine RBC None seen Urine WBC 0-1/hpf Ur Squamous Epith Cells 0-1 /hpf Urine Bacteria None seen Ur Culture Indicated? Cult not indicated 10/30/22 10/30/22 10/30/22 04:45 04:45 04:45 WBC 11.9 H RBC 4.64 Hgb 13.6 Hct 39.6 L MCV 85.4 MCH 29.3 MCHC 34.3 RDW 13.6 Plt Count 207 Neut % (Auto) 78.6 H Lymph % (Auto) 12.3 L [place] % (Auto) 8.0 Eos % (Auto) 0.8 L Baso % (Auto) 0.3 Neut # (Auto) 9400 H Lymph # (Auto) 1500 [place] # (Auto) 1000 H Eos # (Auto) 100 Baso # (Auto) 0 Sodium 131 L Potassium 4.3 Chloride 100 Carbon Dioxide 27 BUN 16 Creatinine 0.79 Estimated GFR > 60 BUN/Creatinine Ratio 20.3 Glucose 91 Calcium 7.9 L Magnesium 1.8 Troponin I Urine Color Urine Appearance Urine pH Ur Specific [place] Urine Protein Urine Glucose (UA) Urine Ketones Urine Occult Blood Urine Nitrate Urine Bilirubin Urine Urobilinogen Ur Leukocyte Esterase Urine RBC Urine WBC Ur Squamous Epith Cells Urine Bacteria Ur Culture Indicated? PFSH Surgical History H/O vasectomy History of total hip replacement Hx of tonsillectomy Social History household members: spouse Smoking Status: Former smoker alcohol intake: current Assessment & Plan Assessment and plan (1) Gallstone pancreatitis: Status: Acute Plan He may be experiencing a component of ileus vs ongoing pancreatitis. Recommend dropping back to clear liquid diet until he feels a little better.
[2022-10-30 16:47] LABS: TSH w/ Reflex to FT4 3.55 uIU/mL (0.47-4.68)
[2022-10-30] MEDS: PIPERACILLIN/TAZO 3.375 GM in SODIUM CHLORIDE 0.9% 100 ML IV (17:30)
[2022-10-30 18:00] VITALS: BP 121/56; PULSE 65; RESP 22; TEMP 36.7; O2SAT 94
[2022-10-30 23:45] VITALS: BP 145/61; PULSE 63; RESP 18; TEMP 36.4; O2SAT 94
[2022-10-31] MEDS: METOPROLOL IR 25 MG TABLET PO ×3 (00:53→11:10)
[2022-10-31] MEDS: PIPERACILLIN/TAZO 3.375 GM in SODIUM CHLORIDE 0.9% 100 ML IV ×2 (00:53→10:05)
[2022-10-31] MEDS: ACETAMINOPHEN 325 MG TABLET 650 MG PO ×2 (00:59→06:43)
[2022-10-31 05:10] VITALS: BP 130/70; PULSE 63; RESP 16; TEMP 36.6; O2SAT 93
[2022-10-31 06:01] LABS: Add Manual Diff / Slide Review NO; Basophils Absolute Auto 100 /uL (0-100); Basophils Percent Auto 0.5 % (0-2); Eosinophils Absolute Auto 400 /uL (0-450); Eosinophils Percent Auto 3.8 % (2-4); Hematocrit 37.3 % (41-53); Hemoglobin 12.9 g/dL (13.5-17.5); Lymphocytes Absolute Auto 1400 /uL (1100-4500); Lymphocytes Percent Auto 14.2 % (25-40); Mean Corpuscular HGB Conc 34.5 % (30-36); Mean Corpuscular Hemoglobin 29.7 PG (26-34); Monocytes Absolute Auto 900 /uL (0-900); Monocytes Percent Auto 9.2 % (3-14); Neutrophils Absolute Auto 7000 /uL (1500-7000); Neutrophils Percent Auto 72.3 % (50-75); Platelet Count 213 X10^3/uL (150-400); Red Blood Cell Count 4.34 X10^6/uL (4.5-5.9); Red Cell Distribution Width 13.5 % (11.6-14.8); White Blood Cell Count 9.6 X10^3/uL (4.5-11.0)
[2022-10-31 06:15] LABS: Magnesium 2.3 mg/dL (1.6-2.3)
[2022-10-31 08:07] VITALS: BP 136/55; PULSE 61; RESP 18; TEMP 36.2; O2SAT 99
[2022-10-31] MEDS: AMLODIPINE 5 MG TABLET PO (08:28)
[2022-10-31] MEDS: SENNOSIDES 8.6 MG TABLET PO (08:28)
[2022-10-31] MEDS: DOCUSATE 100 MG CAPSULE PO (08:28)
[2022-10-31] MEDS: ATORVASTATIN 20 MG TABLET 10 MG PO (08:28)
[2022-10-31] MEDS: ASPIRIN EC 81 MG TABLET PO (08:28)
[2022-10-31] MEDS: FUROSEMIDE 20 MG/2 ML VIAL IV (08:28)
--- NOTE | 2022-10-31 11:07 | CM.DPNOTE ---
DC Note Discharge to [facility] H+R today; PASRR completed Patient and family remain agreeable to this plan, patient has [facility] coverage for a short SNF stay. Patient does not expect to be at the SNF for long Angela, [employer] systems administrator, will plan to fax DC ppk. garbage pick up worker scheduled for 5900, THADDEUS mai JW
--- NOTE | 2022-10-31 11:13 | PM.DS.1 ---
History of Present Illness History of Present Illness Date Patient Seen: 10/26/22 Time Patient Seen: 22:00 Chief complaint: stomach cramps R/side back pain Narrative: Mr. Crowder is a 77 M with PMH HTN, HL who presents to the hospital with abdominal pain. He drinks a glass of wine daily, last was 4 days ago. He has no history of gallstones. No new medication. No OTC or herbal supplements. He says his cholesterol has been well controlled. He has no diarrhea. Some nausea. In the ED workup was done, vitals afebrile, heart 110s, blood pressure 130s/80s. Labs reviewed by me and WBC 14.4, hgb 16.3, plts 280. Na 133, creatinine 0.72. Lipase 11727. Imaging reviewed by me and notable for pancreatic edema. Abdominal ultrasound shows prominence of gallbladder wall with sludge. He was ordered for fluids and admitted for further treatment. Discharge Providers Provider Date of admission: 10/26/22 22:00 Discharge Date: 10/31/22 Primary care physician: Irvin Stringer MD Consults: 10/26/22 23:26 Consult to Dietitian, Adult Routine Comment: Reason For Exam: pancreatitis 10/28/22 10:53 Consult to Dietitian, Adult Routine Comment: prenatal genetic counselor pt on low fat diet for near term Reason For Exam: pancreatitis 10/29/22 14:25 Consult to Occupational Therapy Evaluate & Treat Comment: Physician Instructions: Evaluate and treat Consult to Physical Therapy Evaluate & Treat Comment: Physician Instructions: Evaluate and Treat 10/30/22 11:37 Consult to D[employer] - [employer] Pcb Designer Routine Comment: [facility], family arranged 3 midnights private pay Discharge provider: Surjit Mendez DO Summary Hospital Course Discharge Diagnosis: 1. Acute gallstone pancreatitis -this is pt's second episode in 8 years -abd CT: inflamed pancreas, no pancreatic mass/lesion -US: GB sludge -lap raffaele with Dr Jalloh completed on 10/29 -advanced to low fat diet, tolerating well 2. Hypertension, hyperlipidemia -resume home meds 3. SVT -having intermittent sustained runs of SVT on tele with HR in 160's, not A-fib -echo showed EF 60-65%, mild mitral aortic and tricuspid regurg, RVSP 28 -started po metop tart 25mg q6h, no further SVT episodes -dc on metoprolol XL 100mg daily and f/u with PCP for holter monitor 4. Fever, SOB -had one temp of 100.4F -CXR reads as infectious vs inflamm, pulm edema -start zosyn, blood cultures negative at 24 hours -gave IV lasix 20mg daily for likely volume overload from IVF for pancreatitis, breathing improved -dc on 3 more days of po levaquin to cover for PNA Hospital Course: Admitted for gallstone pancreatitis and had lap raffaele with gen surg. Did well post-op and advanced diet. Had some runs of SVT and put on metoprolol and these stopped. Had some SOB and CXR showed possible PNA vs pulm edema. Given IV abx and lasix and breathing improved. Echo was reassuring. Discharged on po metoprolol XL daily and 3 more days of po levaquin. Time Spent with Patient Time spent: Greater than 30 minutes Exam Vital Signs (past 8 hours): - 10/31/22 05:10 10/31/22 08:07 Temperature 97.8 F 97.1 F L Pulse Rate 63 61 Respiratory Rate 16 18 Blood Pressure 130/70 136/55 L Pulse Oximetry 93 99 Oxygen Flow Rate 0 Oxygen Delivery Method Room Air Oxygen Flow Rate 0 Narrative Exam Narrative: Gen: alert, comfortable Lungsd: clear bilaterally CV: regular rate and rhythm, no murmurs Abd: soft, tender epigastrium, no distension. incisions clean. Ext: no edema Objective Labs 10/31/22 05:43 10/30/22 04:45 Labs: Laboratory Results - last 24 hr 10/30/22 10/31/22 10/31/22 04:45 05:43 05:43 WBC 9.6 RBC 4.34 L Hgb 12.9 L Hct 37.3 L MCV 86.0 MCH 29.7 MCHC 34.5 RDW 13.5 Plt Count 213 Neut % (Auto) 72.3 Lymph % (Auto) 14.2 L [place] % (Auto) 9.2 Eos % (Auto) 3.8 Baso % (Auto) 0.5 Neut # (Auto) 7000 Lymph # (Auto) 1400 [place] # (Auto) 900 Eos # (Auto) 400 Baso # (Auto) 100 Magnesium 2.3 TSH 3.55 PFSH Surgical History H/O vasectomy History of total hip replacement Hx of tonsillectomy Social History household members: spouse Smoking Status: Former smoker alcohol intake: current Discharge Plan Discharge Plan Patient Disposition: SNF Transfer to: [facility] Discharge orders & Medications Prescriptions: New levofloxacin 750 mg tablet 750 mg PO BEDTIME 3 Days Qty: 3 0RF Rx Instructions: start evening of 10/31 metoprolol succinate 100 mg tablet extended release 24 hr 100 mg PO DAILY Qty: 30 0RF Rx Instructions: start on 11/01 Continued multivitamin [Multiple Vitamins] 1 EACH tablet 1 tab PO QDAY Qty: 0 amlodipine [Norvasc] 5 mg tablet See Rx Instructions .ROUTE .COMPLEX Patient Comments: TAKE ONE TABLET BY MOUTH TWICE DAILY Rx Instructions: HTNN aspirin 81 mg Tablet 81 mg PO DAILY atorvastatin 10 mg tablet 10 mg PO DAILY acetaminophen [Tylenol] 325 mg Capsule 325 mg PO QID PRN (Reason: Headache) Follow up/Referrals: Irvin Stringer MD [Primary Care Provider] - Visit Report/Discharge Packet Instructions: DI for Open Cholecystectomy, DI for Laparoscopy, DI for Prescription Opioid Use, [facility]: Wound Care Stand Alone Forms: Patient Portal/API Discharge Data Primary Care Provider: Irvin Stringer
== END 2022-10-31 12:38 | DRG 418 ==
LOC: ED 20:33 → AC 23:01
PROVIDERS: Internal Medicine; Student in an Organized Health Care Education/Training Program; Surgery; Admitting Provider Internal Medicine; Emergency Provider Emergency Medicine; PCP Family Medicine; Referring Provider Emergency Medicine; Visit Provider Internal Medicine
PROC: 0FT44ZZ Resection of Gallbladder, Percutaneous Endoscopic Approach (ICD-10-PCS; CPT 47562; principal; 2022-10-28 13:45)
DX: K85.10 Biliary acute pancreatitis without necrosis or infection (principal); I47.1 Supraventricular tachycardia; I10 Essential (primary) hypertension; E78.5 Hyperlipidemia, unspecified; R06.02 Shortness of breath; R50.9 Fever, unspecified; Z87.891 Personal history of nicotine dependence; Z20.822 Contact with and (suspected) exposure to COVID-19
CPT/HCPCS: 36415; 71045; 74177; 74300; 76000; 76705; 80048; 80053; 80061; 81001; 81003; 83690; 83735; 84443; 84484; 85025; 87040; 93005; 93010; 93306; 96374; 96375; 97116; 97161; 97165; 99284; 99285; J0171; J0690; J1100; J1170; J1650; J1885; J1940; J2405; J2543; J2704; J3010; J3475; J3490; Q9967

== ENCOUNTER → 2023-03-03 07:55 | Outpatient (CLI) | payer MEDICARE, OTHER, SELFPAY ==
[2023-03-03 09:07] LABS: Add Manual Diff / Slide Review NO; Basophils Absolute Auto 0 /uL (0-100); Basophils Percent Auto 0.6 % (0-2); Eosinophils Absolute Auto 300 /uL (0-450); Eosinophils Percent Auto 5.3 % (2-4); Hematocrit 43.6 % (41-53); Hemoglobin 14.9 g/dL (13.5-17.5); Lymphocytes Absolute Auto 1500 /uL (1100-4500); Lymphocytes Percent Auto 24.8 % (25-40); Mean Corpuscular HGB Conc 34.2 % (30-36); Mean Corpuscular Hemoglobin 29.5 PG (26-34); Mean Corpuscular Volume 86.4 fL (80-100); Monocytes Absolute Auto 600 /uL (0-900); Neutrophils Absolute Auto 3800 /uL (1500-7000); Neutrophils Percent Auto 60.3 % (50-75); Platelet Count 231 X10^3/uL (150-400); Red Blood Cell Count 5.05 X10^6/uL (4.5-5.9); Red Cell Distribution Width 13.8 % (11.6-14.8); White Blood Cell Count 6.2 X10^3/uL (4.5-11.0)
[2023-03-03 09:19] LABS: Alanine Aminotransferase 27 IU/L (<50); Albumin 4.1 g/dL (3.5-5.0); Albumin Globulin Ratio 1.6 (1.0-2.8); Alkaline Phosphatase 59 U/L (38-126); Amylase 53 U/L (30-110); Aspartate Aminotransferase 32 IU/L (17-59); BUN Creatinine Ratio 19.7 (6-22); Bilirubin Total 0.5 mg/dL (0.2-1.3); Blood Urea Nitrogen 15 mg/dL (9-20); Calcium 9.5 mg/dL (8.4-10.2); Carbon Dioxide 25 mmol/L (22-32); Chloride 103 mmol/L (98-107); Cholesterol 150 mg/dL (140-199); Estimated Glomerular Filt Rate > 60 mL/min (>60); Globulin 2.6 g/dL (1.7-4.1); Glucose 96 mg/dL (80-110); HDL Cholesterol 52 mg/dL (40-60); HEMOLYSIS < 15 (0-50); LDL Cholesterol Calculated 82 mg/dL (<100); Lipase 50 U/L (23-300); Magnesium 2.1 mg/dL (1.6-2.3); Potassium 4.5 mmol/L (3.4-5.1); Sodium 135 mmol/L (137-145); Total Protein 6.7 g/dL (6.3-8.2); Triglycerides 79 mg/dL (35-150)
[2023-03-03 09:36] LABS: Vitamin D 25 Hydroxy (D3) 32.5 ng/mL (30.0-100.0)
[2023-03-03 09:50] LABS: Thyroid Stimulating Hormone 3.29 uIU/mL (0.47-4.68)
[2023-03-03 10:08] LABS: Vitamin B12 652 pg/mL (239-931)
== END ==
PROVIDERS: PCP Family Medicine; Referring Provider Family Medicine; Visit Provider Family Medicine
DX: I49.8 Other specified cardiac arrhythmias (principal); I10 Essential (primary) hypertension; Z12.5 Encounter for screening for malignant neoplasm of prostate; K86.3 Pseudocyst of pancreas; E03.9 Hypothyroidism, unspecified; M12.89 Other specific arthropathies, not elsewhere classified, multiple sites; E55.9 Vitamin D deficiency, unspecified; R06.02 Shortness of breath; R42 Dizziness and giddiness; N40.0 Benign prostatic hyperplasia without lower urinary tract symptoms; Z79.899 Other long term (current) drug therapy
CPT/HCPCS: 36415; 80053; 80061; 82150; 82306; 82607; 83690; 83735; 84443; 85025; G0103

== ENCOUNTER → 2023-03-18 14:20 | Outpatient (CLI) | payer MEDICARE, OTHER, SELFPAY ==
--- NOTE | 2023-03-18 | DI.MRI.S_ITS ---
PROCEDURE: MR AB PANCREATIC/MRCP PROTOCOL INDICATIONS: Pseudocyst of pancreas TECHNIQUE: Coronal HASTE through the abdomen, axial 2-D FLASH in- and [id number], and breath-hold T2 FSE with fat saturation through the biliary system and pancreas. Oblique coronal and axial thin-slice HASTE, radial thick-slab HASTE centered on the extrahepatic bile ducts. Intravenous secretin: Not requested. COMPARISON: None. FINDINGS: Image quality: Excellent. Pancreas and biliary system: The pancreas is normal in size and signal with uniform enhancement. There is no peripancreatic edema or fluid. The pancreatic duct is normal caliber and nondilated. No adjacent cysts. The biliary tree is normal. The gallbladder is surgically absent. Other solid organs: The liver is normal size without steatosis. No enhancing mass. Adrenal glands and spleen are normal. Symmetric renal enhancement. Nonenhancing right parapelvic cyst. Nodes and vessels: No retroperitoneal or mesenteric adenopathy by size criteria. Aorta and inferior vena cava are normal in size. Bowel and peritoneum: Unenhanced bowel loops are normal in caliber. No free fluid. Lung bases: No basal pleural effusions. Heart size is normal. Bones and soft tissues: No ventral hernias. Bone marrow is of normal overall signal. IMPRESSION: 1. No pancreatic pseudocyst visible. 2. No evidence of residual pancreatitis or pancreatic necrosis. Dictated by: Fransisca Pablo M.D. on 03/19/2023 at 0:00 Approved by: Fransisca Pablo M.D. on 03/19/2023 at 0:10
== END ==
PROVIDERS: PCP Family Medicine; Referring Provider Family Medicine; Visit Provider Family Medicine
DX: K86.3 Pseudocyst of pancreas (principal)
CPT/HCPCS: 74183; A9579

== ENCOUNTER → 2023-04-23 14:00 | Outpatient (CLI) | payer MEDICARE, OTHER, SELFPAY | PROVIDERS: PCP Family Medicine; Referring Provider Family Medicine; Visit Provider Family Medicine | DX: R00.2 Palpitations (principal); R55 Syncope and collapse | CPT/HCPCS: 93242 ==

== ENCOUNTER → 2023-06-16 07:29 | Outpatient (CLI) | payer MEDICARE, OTHER, SELFPAY ==
[2023-06-16 08:20] LABS: BUN Creatinine Ratio 17.9 (6-22); Blood Urea Nitrogen 15 mg/dL (9-20); Carbon Dioxide 26 mmol/L (22-32); Chloride 102 mmol/L (98-107); Estimated Glomerular Filt Rate > 60 mL/min (>60); Glucose 99 mg/dL (80-110); HEMOLYSIS < 15 (0-50); Potassium 4.2 mmol/L (3.4-5.1); Sodium 136 mmol/L (137-145)
== END ==
PROVIDERS: PCP Family Medicine; Referring Provider Internal Medicine Cardiovascular Disease; Visit Provider Internal Medicine Cardiovascular Disease
DX: R55 Syncope and collapse (principal); I71.21 Aneurysm of the ascending aorta, without rupture; I47.10 Supraventricular tachycardia, unspecified
CPT/HCPCS: 36415; 80048

== ENCOUNTER → 2023-07-15 08:02 | Outpatient (CLI) | payer MEDICARE, OTHER, SELFPAY ==
--- NOTE | 2023-07-15 08:12 | DI.CT.S_ITS ---
PROCEDURE: CT ANGIO CHEST ABDOMEN PELVIS INDICATIONS: Syncope and collapse TECHNIQUE: Precontrast 5 mm thick sections acquired from the lung apices to the iliac crests. After the administration of intravenous contrast, 2.5 mm thick sections again acquired from the lung apices to the iliac crests. Maximum intensity projection (MIP) oblique sagittal and coronal reformats were then acquired. For radiation dose reduction, the following was used: automated exposure control. COMPARISON: [facility], CT, ABDOMEN WITH CONTRAST, 09/16/2016, 10:43. [facility], CT, CT ABDOMEN PELVIS W CON, 10/26/2022, 21:22. FINDINGS: Image quality: Diagnostic. AORTA: The ascending thoracic aorta measures 4.4 cm in diameter. Scattered atheromatous calcifications are present at the thoracic arch. The descending thoracic aorta demonstrates normal caliber and course. Minimal atheromatous calcifications are noted. The celiac axis, SMA, bilateral renal arteries and the BRAYAN are widely patent. Moderate circumferential atheromatous calcifications are present throughout the abdominal aorta. No aneurysmal dilatation or dissection. CHEST: Lower Neck: No enlarged lymph nodes. Thyroid: Hypodense subcentimeter cystic lesions are present within the upper right thyroid lobe and the lower left thyroid lobe. Axillae: No enlarged lymph nodes. Chest Wall: Unremarkable. Lungs and Pleura: No pneumothorax or pleural effusions. No consolidation or suspicious nodules. Heart: Heart size is normal. No pericardial effusion. Thoracic Vessels: Pulmonary arteries demonstrate normal size. Mediastinum and Nery: No enlarged lymph nodes. Esophagus: No wall thickening. No hiatal hernia. ABDOMEN: Liver: No solid mass. Gallbladder: The gallbladder is not visualized and may be surgically absent. Biliary ducts: No biliary dilation. Pancreas: No ductal dilation. Spleen: Size is within normal limits. Adrenal Glands: No adrenal nodules. Kidneys and Ureters: No hydronephrosis. No solid mass. No complex renal cystic lesion which requires follow up. There is a low-density right midpole pararenal cyst which is similar in appearance to prior studies. Stomach and Bowel: Normal colonic caliber, without significant wall thickening. The appendix is thin walled and gas filled. There are scattered sigmoid diverticula. No evidence for diverticulitis. Peritoneum: No abnormal intraperitoneal fluid. No free air. Ventral Wall: No hernia. Abdominal Nodes: No retroperitoneal or mesenteric adenopathy by size criteria. Vessels: Inferior vena cava is normal in size. PELVIS: Pelvic Organs: Unremarkable. Bladder: Unremarkable. Pelvic Nodes: No enlarged lymph nodes. Miscellaneous: There are small bilateral fat containing inguinal hernias. Bones: Unremarkable. IMPRESSION: 1. Ectasia of the ascending thoracic aorta. Annual sonographic surveillance is recommended. 2. No aortic dissection or aneurysmal dilatation. 3. No acute intra-abdominal findings. Normal appendix. Mild diverticulosis. Dictated by: Leslie Fields M.D. on 07/15/2023 at 10:04 Approved by: Leslie Fields M.D. on 07/15/2023 at 10:28
== END ==
LOC: CT 08:03
PROVIDERS: PCP Family Medicine; Referring Provider Internal Medicine Cardiovascular Disease; Visit Provider Internal Medicine Cardiovascular Disease
DX: I71.21 Aneurysm of the ascending aorta, without rupture (principal); I47.10 Supraventricular tachycardia, unspecified; R55 Syncope and collapse; K57.30 Diverticulosis of large intestine without perforation or abscess without bleeding
CPT/HCPCS: 71275; 74174; Q9967

== ENCOUNTER → 2023-08-11 10:32 | Outpatient (CLI) | payer MEDICARE, OTHER, SELFPAY ==
--- NOTE | 2023-08-12 00:45 | DI.NM.S_ITS ---
DATE OF SERVICE: 08/11/2023 PROCEDURE: Exercise perfusion study. INDICATIONS: SVT, hypertension, ascending aorta dilatation. RADIOPHARMACEUTICAL: 24.0 millicuries technetium-99m Myoview IV was injected at stress and 12.9 millicuries technetium-99m Myoview IV was injected at rest. CARDIAC STRESS: The patient underwent exercise perfusion study under the supervision of an attending staff. The patient walked on Aldo protocol for 6 minutes and 30 seconds, achieved maximum heart rate of 130, which was 99% of target heart rate. Achieved 7 METS of workload. MIKKI -10%. Resting blood pressure 138/78 and peak blood pressure 180/90. Baseline rhythm was sinus. During peak exercise, no obvious ischemic changes. However, in immediate recovery, there was about 1-[address] depression in the inferolateral leads, which got resolved to baseline within 1 minute in recovery. Occasional PVCs without any ventricular tachycardia. No chest pain or anginal symptoms. RAW DATA: There is increased subdiaphragmatic activity. GATED STUDY: Resting LV ejection fraction 69% and stress LV ejection fraction 71% without any obvious wall motion abnormalities. Resting end- diastolic volume 131 mL. TID ratio 1.00, which is within normal limits. Lung/heart ratio 0.33, which is within normal limits. MYOCARDIAL PERFUSION SCAN: Stress supine, resting supine and stress prone images were compared to each other. Stress supine and resting supine images revealed small size, mildly decreased perfusion of basal inferior wall extending into the basal inferior septum which got completely resolved during stress prone images suggestive of tissue attenuation artifact. No convincing ischemia or infarction. Summed stress score zero and summed rest score one. CONCLUSION: I will call this study a normal myocardial perfusion study with evidence of diaphragmatic tissue attenuation artifact, which got resolved during stress prone images. Summed stress score is zero. Preserved left ventricular function. Fair exercise tolerance. Normal hemodynamic response. In the immediate recovery, patient had transient 1-[address] depression in the inferolateral leads, which got resolved within 1 minute in recovery. Occasional premature ventricular contractions without any complex arrhythmias. No anginal symptoms. Overall, low-risk exercise perfusion study. Correlate clinically. Vijaya Sexton - SAMANTHA/latanya/DAMARIS doc#: [id number]/job#: [id number] dd: 08/11/2023 16:52:00 dt: 08/12/2023 00:37:00 DICTATING MD/COPIES TO: Shraddha Wheatley MD COPIES MNE: JOSE;
== END ==
PROVIDERS: PCP Family Medicine; Referring Provider Internal Medicine Cardiovascular Disease; Visit Provider Internal Medicine Cardiovascular Disease
DX: I47.10 Supraventricular tachycardia, unspecified (principal); I71.21 Aneurysm of the ascending aorta, without rupture; R55 Syncope and collapse; I10 Essential (primary) hypertension
CPT/HCPCS: 78452; 93017; A9502

== ENCOUNTER → 2023-08-14 10:12 | Outpatient (CLI) | payer MEDICARE, OTHER, SELFPAY ==
[2023-08-14 11:28] LABS: Cholesterol 136 mg/dL (140-199); HDL Cholesterol 40 mg/dL (40-60); LDL Cholesterol Calculated 66 mg/dL (<100); Triglycerides 150 mg/dL (35-150)
[2023-08-14 11:55] LABS: Thyroid Stimulating Hormone 3.29 uIU/mL (0.47-4.68)
== END ==
LOC: LAB 10:14
PROVIDERS: PCP Family Medicine; Referring Provider Internal Medicine Cardiovascular Disease; Visit Provider Internal Medicine Cardiovascular Disease
DX: I47.10 Supraventricular tachycardia, unspecified (principal); I71.21 Aneurysm of the ascending aorta, without rupture
CPT/HCPCS: 36415; 80061; 84443

== ENCOUNTER → 2023-08-21 09:35 | Outpatient (CLI) | payer MEDICARE, OTHER, SELFPAY ==
--- NOTE | 2023-08-21 09:37 | DI.RAD.S_ITS ---
PROCEDURE: XR CHEST 2V INDICATIONS: Cough TECHNIQUE: 2 views of the chest were acquired. COMPARISON: [facility], CT, CT ANGIO CHEST ABDOMEN PELVIS, 07/15/2023, 8:10. [facility], CR, XR CHEST 1V, 10/29/2022, 17:51. [facility], CR, XR CHEST 2V, 12/31/2020, 14:41. FINDINGS: Surgical changes and devices: None. Lungs and pleura: Left perihilar opacity. No pleural effusions or pneumothorax. Mediastinum: Mediastinal contours are normal. Heart size is normal. Bones and chest wall: No suspicious bony abnormalities. Soft tissues appear unremarkable. IMPRESSION: Left perihilar opacity. Suspect pneumonia. Recommend follow-up to resolution. Dictated by: Edinson Lino M.D. on 08/21/2023 at 12:50 Approved by: Edinson Lino M.D. on 08/21/2023 at 12:52
== END ==
PROVIDERS: PCP Family Medicine; Referring Provider Nurse Practitioner Family; Visit Provider Nurse Practitioner Family
DX: R05.9 Cough, unspecified (principal)
CPT/HCPCS: 71046

== ENCOUNTER → 2023-09-03 08:19 | Outpatient (CLI) | payer MEDICARE, OTHER, SELFPAY ==
--- NOTE | 2023-09-03 | DI.RAD.S_ITS ---
PROCEDURE: XR CHEST 2V INDICATIONS: PNEUMONIA TECHNIQUE: 2 views of the chest were acquired. COMPARISON: [facility], CR, XR CHEST 2V, 08/21/2023, 10:15. [facility], CR, XR CHEST 1V, 10/29/2022, 17:51. FINDINGS: Surgical changes and devices: None. Lungs and pleura: Lungs are clear. No pleural effusions or pneumothorax. Mediastinum: Mediastinal contours are normal. Heart size is normal. Bones and chest wall: No suspicious bony abnormalities. Soft tissues appear unremarkable. IMPRESSION: Prior left perihilar opacity appears resolved. No acute cardiopulmonary process. Dictated by: Claude Perez M.D. on 09/03/2023 at 10:33 Approved by: Claude Perez M.D. on 09/03/2023 at 10:34
== END ==
PROVIDERS: PCP Family Medicine; Referring Provider Family Medicine; Visit Provider Family Medicine
DX: J18.9 Pneumonia, unspecified organism (principal)
CPT/HCPCS: 71046

== ENCOUNTER 2023-10-06 11:36 | Emergency (ER) | payer MEDICARE, OTHER, SELFPAY ==
[2023-10-06] VITALS (26 sets, daily range): BP systolic 112–147; BP diastolic 53–77; PULSE 65–156; RESP 14–26; TEMP 36.4; O2SAT 94–98; BMI 28.1
--- NOTE | 2023-10-06 11:54 | DI.RAD.S_ITS ---
PROCEDURE: XR CHEST 1V INDICATIONS: chest pain TECHNIQUE: One view of the chest was acquired. COMPARISON: [facility], CR, XR CHEST 1V, 10/29/2022, 17:51. FINDINGS: Surgical changes and devices: None. Lungs and pleura: Lungs are clear. No pleural effusions or pneumothorax. Mediastinum: Mediastinal contours appear normal. Heart size is normal. Bones and chest wall: No suspicious bony lesions. Overlying soft tissues appear unremarkable. IMPRESSION: No acute cardiopulmonary abnormality is seen. Dictated by: Kathie Romo MD, PhD on 10/06/2023 at 12:28 Approved by: Kathie Romo MD, PhD on 10/06/2023 at 12:29
--- NOTE | 2023-10-06 12:01 | ED.ARRPALP ---
HPI - Arrhythmia/Palpitations General Chief Complaint: Arrhythmia/Palpitations Stated Complaint: Passed out at [facility] Time Seen by Provider: 10/06/23 12:01 Source: patient Mode of arrival: Ambulatory History of Present Illness HPI narrative: Patient is a 78-year-old male history of hypertension hyperlipidemia gallstone pancreatitis presents today with a syncopal episode. He reports that over the last week or so he has had racing heart it comes and goes without any provocation or palliation. Today while at [facility] he felt like he might pass out he was pushing the cart any put his head down on the cart and passed out for a few seconds. They then were able to check out at [facility] get in the car and drive to [place]. He is found to be in SVT with a heart rate of 176 on EKGs. He has never had a cardiac arrhythmia before. He self converted into sinus rhythm at the time of my evaluation. He no longer feels any sort of chest pain or palpitations shortness of breath. He has no abdominal pain nausea or vomiting. This is never happened before. He is followed by cardiology Dr. Bernal. Related Data Home Medications Medication Instructions Recorded Confirmed multivitamin (Multiple Vitamins 1 tab PO QDAY ##0 06/12/16 08/21/23 tablet) acetaminophen 325 mg capsule 325 mg PO QID PRN Headache 09/07/20 08/21/23 (Tylenol) atorvastatin 10 mg tablet 10 mg PO DAILY 09/07/20 08/21/23 amlodipine 5 mg tablet (Norvasc) See Rx Instructions .Route .COMPLEX 01/24/22 08/21/23 aspirin 81 mg tablet 81 mg PO DAILY 10/26/22 08/21/23 Previous Rx's Medication Instructions Recorded metoprolol succinate 100 mg 100 mg PO DAILY #30 tabs 10/31/22 tablet,extended release 24 hr albuterol sulfate 90 mcg/actuation 2 puff inhalation Q6H PRN 08/21/23 aerosol inhaler shortness of breath or wheezing #6.7 grams amoxicillin 875 mg-potassium 1 tab PO BID #10 tabs 08/21/23 clavulanate 125 mg tablet azithromycin 250 mg tablet See Rx Instructions PO .COMPLEX #6 08/21/23 tabs benzonatate 200 mg capsule 200 mg PO BID PRN cough #28 caps 08/21/23 inhalational spacing device #1 ea 08/21/23 (Aerochamber MV spacer) diltiazem HCl 120 mg 120 mg PO DAILY #30 caps 10/06/23 capsule,extended release 24 hr Allergies Allergy/AdvReac Type Severity Reaction Status Date / Time No Known Drug Allergies Allergy Verified 10/06/23 11:54 Patient History Surgical History Hx of cholecystectomy H/O vasectomy History of total hip replacement Hx of tonsillectomy Social History household members: spouse Smoking Status: Former smoker alcohol intake: current Smoking Status: Former smoker alcohol intake frequency: a few times a week Substance Use Type: does not use Exam Initial Vital Signs Initial Vital Signs: Vital Signs Temperature 97.6 F 10/06/23 11:46 Pulse Rate 100 H 10/06/23 11:46 Respiratory Rate 16 10/06/23 11:46 Blood Pressure 116/77 10/06/23 11:46 Pulse Oximetry 98 10/06/23 11:46 Oxygen Delivery Method Room Air 10/06/23 11:46 GENERAL: Alert pleasant 78-year-old male and in no acute distress. HEENT: Head atraumatic,EOMI, pupils reactive, face symmetric, moist mucous membranes CARDIOVASCULAR: Regular rate and rhythm without murmurs, rubs or gallops. RESPIRATORY: Breath sounds equal bilaterally, no wheezes rales or rhonchi. ABDOMEN: Soft, nontender. Normoactive bowel sounds all 4 quadrants. No guarding or rebound. EXTREMITIES: Normal range of motion, no clubbing or edema. Neurovascularly intact NEUROLOGICAL: Alert and oriented x4.Normal gait and speech. Cranial nerves II through XII grossly intact. SKIN: Warm, dry, no laceration, no petechiae, no rashes or lesions. Course Orders Ordered: ED Orders 10/06/23 11:54 XR chest 1V Stat EKG-12 Lead Stat 10/06/23 12:00 Complete Blood Count AUTO DIFF Stat Comprehensive Metabolic Panel Stat Lipase Stat Magnesium Stat PTT Partial Thromboplastin Nils Stat Prothrombin Time INR Stat Troponin & CK Cardiac Panel Stat 10/06/23 12:20 EKG-12 Lead Stat 10/06/23 12:27 CT angio chest abdomen pelvis Stat 10/06/23 12:37 EKG-12 Lead Routine 10/06/23 12:43 EKG-12 Lead Routine Discontinued Medications Aspirin (Aspirin 81 Mg Chew Tab) 324 mg PO NOW ONE Stop: 10/06/23 11:55 Last Admin: 10/06/23 14:43 Dose: Not Given Documented By: DARIEL Diltiazem HCl (Diltiazem 25 Mg/5 Ml Sdv) 10 mg IV NOW ONE Stop: 10/06/23 12:39 Last Admin: 10/06/23 13:08 Dose: 10 mg Documented By: DARIEL Diltiazem HCl (Diltiazem Cd 120 Mg Cap) 120 mg PO NOW ONE Stop: 10/06/23 14:30 Last Admin: 10/06/23 14:39 Dose: 120 mg Documented By: DARIEL Vital Signs Vital signs: Vital Signs - 8 hr 10/06/23 11:46 10/06/23 12:04 10/06/23 12:05 Temperature 97.6 F Pulse Rate 100 H 98 H 98 H Respiratory Rate 16 Blood Pressure 116/77 Pulse Oximetry 98 96 97 Oxygen Delivery Method Room Air 10/06/23 12:05 10/06/23 12:29 10/06/23 12:29 Temperature Pulse Rate 72 Respiratory Rate 14 Blood Pressure 137/77 147/70 H Pulse Oximetry 95 Oxygen Delivery Method 10/06/23 12:30 10/06/23 12:30 10/06/23 12:45 Temperature Pulse Rate 75 91 H Respiratory Rate 20 18 Blood Pressure 147/69 H Pulse Oximetry 95 95 Oxygen Delivery Method 10/06/23 12:45 10/06/23 12:50 10/06/23 12:50 Temperature Pulse Rate 90 Respiratory Rate 16 Blood Pressure 130/60 130/63 Pulse Oximetry 94 Oxygen Delivery Method 10/06/23 12:55 10/06/23 12:55 10/06/23 13:00 Temperature Pulse Rate 88 91 H Respiratory Rate 18 21 Blood Pressure 130/62 Pulse Oximetry 94 95 Oxygen Delivery Method 10/06/23 13:00 10/06/23 13:05 10/06/23 13:05 Temperature Pulse Rate 92 H Respiratory Rate 17 Blood Pressure 125/66 123/67 Pulse Oximetry 94 Oxygen Delivery Method 10/06/23 13:08 10/06/23 13:10 10/06/23 13:10 Temperature Pulse Rate 156 H 94 H Respiratory Rate 17 Blood Pressure 123/67 113/60 Pulse Oximetry 95 Oxygen Delivery Method 10/06/23 13:16 10/06/23 13:16 10/06/23 13:20 Temperature Pulse Rate 103 H Respiratory Rate 26 H Blood Pressure 112/53 L 133/62 Pulse Oximetry Oxygen Delivery Method 10/06/23 13:20 10/06/23 13:25 10/06/23 13:25 Temperature Pulse Rate 69 66 Respiratory Rate 16 19 Blood Pressure 121/60 Pulse Oximetry 94 94 Oxygen Delivery Method 10/06/23 13:30 10/06/23 13:30 10/06/23 13:35 Temperature Pulse Rate 66 Respiratory Rate 18 Blood Pressure 123/59 L 123/64 Pulse Oximetry 94 Oxygen Delivery Method 10/06/23 13:35 10/06/23 13:40 10/06/23 13:40 Temperature Pulse Rate 68 67 Respiratory Rate 18 15 Blood Pressure 129/69 Pulse Oximetry 96 97 Oxygen Delivery Method 10/06/23 13:45 10/06/23 13:45 10/06/23 13:50 Temperature Pulse Rate 66 Respiratory Rate 21 Blood Pressure 128/68 132/70 Pulse Oximetry 97 Oxygen Delivery Method 10/06/23 13:50 10/06/23 13:55 10/06/23 13:55 Temperature Pulse Rate 68 67 Respiratory Rate 15 22 Blood Pressure 138/65 Pulse Oximetry 97 94 Oxygen Delivery Method 10/06/23 14:00 10/06/23 14:00 10/06/23 14:05 Temperature Pulse Rate 68 65 Respiratory Rate 16 17 Blood Pressure 114/58 L Pulse Oximetry 95 97 Oxygen Delivery Method 10/06/23 14:05 10/06/23 14:10 10/06/23 14:10 Temperature Pulse Rate 65 Respiratory Rate 18 Blood Pressure 136/63 133/61 Pulse Oximetry 95 Oxygen Delivery Method 10/06/23 14:15 10/06/23 14:15 10/06/23 14:30 Temperature Pulse Rate 66 70 Respiratory Rate 14 18 Blood Pressure 126/63 Pulse Oximetry 98 96 Oxygen Delivery Method 10/06/23 14:30 Temperature Pulse Rate Respiratory Rate Blood Pressure 141/73 H Pulse Oximetry Oxygen Delivery Method MDM - Arrhythmia/Palpitations Lab Data 10/06/23 12:00 10/06/23 12:00 Labs: Lab Results 10/06/23 Range/Units 12:00 WBC 9.7 (4.5-11.0) X10^3/uL RBC 5.34 (4.5-5.9) X10^6/uL Hgb 15.9 (13.5-17.5) g/dL Hct 46.2 (41-53) % MCV 86.5 (80-100) fL MCH 29.7 (26-34) PG MCHC 34.3 (30-36) % RDW 14.2 (11.6-14.8) % Plt Count 275 (150-400) X10^3/uL Neut % (Auto) 68.0 (50-75) % Lymph % (Auto) 19.4 L (25-40) % [place] % (Auto) 9.6 (3-14) % Eos % (Auto) 2.0 (2-4) % Baso % (Auto) 1.0 (0-2) % Neut # (Auto) 6600 (6149-4593) /uL Lymph # (Auto) 1900 (1028-5139) /uL [place] # (Auto) 900 (0-900) /uL Eos # (Auto) 200 (0-450) /uL Baso # (Auto) 100 (0-100) /uL PT 12.4 (9.4-12.5) SECONDS INR 1.1 (0.9-1.3) APTT 36 (25.1-36.5) SECONDS Sodium 136 L (137-145) mmol/L Potassium 4.4 (3.4-5.1) mmol/L Chloride 106 (98-107) mmol/L Carbon Dioxide 23 (22-32) mmol/L BUN 17 (9-20) mg/dL Creatinine 0.84 (0.66-1.25) mg/dL Estimated GFR > 60 (>60) mL/min BUN/Creatinine Ratio 20.2 (6-22) Glucose 117 H (80-110) mg/dL Calcium 9.1 (8.4-10.2) mg/dL Magnesium 2.1 (1.6-2.3) mg/dL Total Bilirubin 0.9 (0.2-1.3) mg/dL AST 41 (17-59) IU/L ALT 27 (<50) IU/L Alkaline Phosphatase 56 (38-126) U/L Total Creatine Kinase 98 (55-170) U/L Troponin I < 0.012 (0.01-0.034) ng/mL Total Protein 7.4 (6.3-8.2) g/dL Albumin 4.5 (3.5-5.0) g/dL Globulin 2.9 (1.7-4.1) g/dL Albumin/Globulin Ratio 1.6 (1.0-2.8) Lipase 53 (23-300) U/L Imaging Data Chest x-ray: Radiologist's Impresson: PROCEDURE: XR CHEST 1V INDICATIONS: chest pain TECHNIQUE: One view of the chest was acquired. COMPARISON: [facility], CR, XR CHEST 1V, 10/29/2022, 17:51. FINDINGS: Surgical changes and devices: None. Lungs and pleura: Lungs are clear. No pleural effusions or pneumothorax. Mediastinum: Mediastinal contours appear normal. Heart size is normal. Bones and chest wall: No suspicious bony lesions. Overlying soft tissues appear unremarkable. IMPRESSION: No acute cardiopulmonary abnormality is seen. Dictated by: Kathie Romo MD, PhD on 10/06/2023 at 12:28 CT scan - abdomen/pelvis: Radiologist's Impresson: PROCEDURE: CT ANGIO CHEST ABDOMEN PELVIS INDICATIONS: syncope with known ectasia of ascending thoracic aorta TECHNIQUE: Precontrast 5 mm thick sections acquired from the lung apices to the iliac crests. After the administration of intravenous contrast, 2.5 mm thick sections again acquired from the lung apices to the iliac crests. Maximum intensity projection (MIP) oblique sagittal and coronal reformats were then acquired. For radiation dose reduction, the following was used: automated exposure control. COMPARISON: [facility], CT, CT ANGIO CHEST ABDOMEN PELVIS, 07/15/2023, 8:10. FINDINGS: Image quality: Diagnostic Lungs and pleura: No dense airspace disease, pneumothorax, pleural effusion, or overtly suspicious pulmonary nodule. Scattered scarring and atelectasis are present. Mediastinum, heart, and esophagus: Possible small hiatal hernia and mild distal esophageal wall thickening. There are significant coronary calcifications. Overall similar appearance of the thoracic aorta measuring about 4.4 cm. No evidence of acute dissection. Atherosclerotic calcifications are present. No pathologic lymph nodes by size criteria Chest wall and thyroid: Unremarkable thyroid chest wall Liver: Unremarkable Gallbladder and biliary system: Absent, prominent biliary system again seen in the postsurgical state. Pancreas: No ductal dilation Spleen: Nonenlarged Adrenals: Mild thickening as before Kidneys: Parapelvic right renal cyst. No complicated or solid lesions requiring follow-up identified. No hydronephrosis Vessels and lymph nodes: No abdominal aortic aneurysm. The major mesenteric vessels appear patent. The renal arteries appear patent. There are mild atherosclerotic calcifications. No pathologic lymph nodes by size criteria. Bowel and peritoneum: Mild wall thickening versus artifact of under distention in the stomach. No small bowel obstruction. No pathologic ascites or drainable abscess. There are colonic diverticula. The appendix appears nondilated Body wall: Small fat containing right inguinal and umbilical hernias. Pelvis: Obscured by metallic artifact. Heterogeneous enlarged prostate is not well evaluated on this study. Possible medial hypertrophy at the bladder neck. Consider correlation with PSA and possible MRI if necessary. Mild bladder wall thickening may be due to chronic obstruction, correlate urinalysis Bones: There are degenerative changes, no acute or suspicious finding. IMPRESSION: Similar diameter thoracic aorta measuring up to 4.4 cm in the mid ascending portion. Significant coronary calcifications. Possible mild gastric wall thickening, representing gastritis or artifact of under distention. Other incidental findings above. No acute changes. Dictated by: Addy Jaeger M.D. on 10/06/2023 at 13:18 ECG Data Attestation: I personally reviewed and interpreted this ECG as follows: Prior ECG tracings: available for review Interpretation: rate 176 different from previous EKGs Repeat EKG normal sinus rhythm rate 91 NC interval 224 QRS [address] changes MDM Narrative Medical decision making narrative: Patient 78-year-old male presents today with syncopal episode. He apparently has known SVT but has never syncopized before. It sounds like a brief episode no significant injury. Blood work has been reviewed no significant electrolyte abnormalities sodium is 136 potassium 4.4 chloride 106 carbon dioxide 23 BUN 17 creatinine 0.8, glucose 117 troponin negative Imaging has been reviewed chest x-ray no acute cardiopulmonary process, aorta is stable thoracic 4.4 cm EKG reviewed does show SVT , with repeat in a normal sinus rhythm rate 91 with first-degree AV block NC interval 224 Patient has frequent episodes of SVT here in the emergency department. Attempted a vasovagal him back into sinus rhythm which was a failed attempt. He ultimately corrected himself and only last for 10 minutes or less. [id number]-Dr. Buck cardiology from [facility] updated on patient's symptoms and test results, he reports that he needs an ablation. Recommends adding diltiazem 120 mg daily. Patient did receive 10 mg of diltiazem IV which has helped blood pressure and heart rate remained stable. Discussed with him that he needs to check his blood pressure daily Discharge Plan Departure Patient Disposition: Home Clinical Impression: Nonsustained supraventricular tachycardia Instructions: DI for Paroxysmal Supraventricular Tachycardia Activity Restrictions/Additional Instructions: *You have been diagnosed with SVT *What to do: At this time I do recommend that you check your blood pressure 1-2 times daily to make sure blood pressures dropping too low. You likely need an ablation. Dr. Bernal's office or Dr. Buck's office should call to schedule follow-up appointment with you if you do not hear from them by Thursday I would definitely call them. *Continue to take medications as directed Add diltiazem 120 mg once daily--sent to [facility] *Follow up with your primary care provider in 2-3 days or call [phone] *Return to ER if you should have recurrent episode of syncope chest pain palpitations shortness of breath or any new, worsening or concerning symptoms Prescriptions: New diltiazem HCl 120 mg capsule,extended release 24hr 120 mg PO DAILY Qty: 30 0RF No Action benzonatate 200 mg capsule 200 mg PO BID PRN (Reason: cough) Qty: 28 0RF albuterol sulfate 90 mcg/actuation HFA aerosol inhaler 2 puff inhalation Q6H PRN (Reason: shortness of breath or wheezing) Qty: 6.7 0RF (DME) Aerochamber MV Spacer See Rx Instructions .ROUTE .MEDSUPPLY Qty: 1 0RF Rx Instructions: As directed multivitamin [Multiple Vitamins] 1 EACH tablet 1 tab PO QDAY Qty: 0 amoxicillin-pot clavulanate 875-125 mg tablet 1 tab PO BID Qty: 10 0RF azithromycin 250 mg tablet See Rx Instructions PO .COMPLEX Qty: 6 0RF Rx Instructions: For 250 mg dose pack: take 500 mg today (day 1), then 250 mg for 4 days (days 2-5) PO amlodipine [Norvasc] 5 mg tablet See Rx Instructions .ROUTE .COMPLEX Patient Comments: TAKE ONE TABLET BY MOUTH TWICE DAILY Rx Instructions: HTNN aspirin 81 mg Tablet 81 mg PO DAILY metoprolol succinate 100 mg tablet extended release 24 hr 100 mg PO DAILY Qty: 30 0RF Rx Instructions: start on 11/01 atorvastatin 10 mg tablet 10 mg PO DAILY acetaminophen [Tylenol] 325 mg Capsule 325 mg PO QID PRN (Reason: Headache) Referrals: Irvin Stringer MD [Primary Care Provider] - Stand Alone Forms: Patient Portal/API
[2023-10-06 12:08] LABS: Add Manual Diff / Slide Review NO; Basophils Absolute Auto 100 /uL (0-100); Eosinophils Absolute Auto 200 /uL (0-450); Hematocrit 46.2 % (41-53); Hemoglobin 15.9 g/dL (13.5-17.5); Lymphocytes Absolute Auto 1900 /uL (1100-4500); Lymphocytes Percent Auto 19.4 % (25-40); Mean Corpuscular HGB Conc 34.3 % (30-36); Mean Corpuscular Hemoglobin 29.7 PG (26-34); Mean Corpuscular Volume 86.5 fL (80-100); Monocytes Absolute Auto 900 /uL (0-900); Monocytes Percent Auto 9.6 % (3-14); Neutrophils Absolute Auto 6600 /uL (1500-7000); Platelet Count 275 X10^3/uL (150-400); Red Blood Cell Count 5.34 X10^6/uL (4.5-5.9); Red Cell Distribution Width 14.2 % (11.6-14.8); White Blood Cell Count 9.7 X10^3/uL (4.5-11.0)
[2023-10-06 12:16] LABS: INR 1.1 (0.9-1.3); Prothrombin Time 12.4 SECONDS (9.4-12.5)
[2023-10-06 12:18] LABS: PTT Partial Thromboplastin Tim 36 SECONDS (25.1-36.5)
[2023-10-06 12:20] LABS: Alanine Aminotransferase 27 IU/L (<50); Albumin 4.5 g/dL (3.5-5.0); Albumin Globulin Ratio 1.6 (1.0-2.8); Alkaline Phosphatase 56 U/L (38-126); Aspartate Aminotransferase 41 IU/L (17-59); BUN Creatinine Ratio 20.2 (6-22); Bilirubin Total 0.9 mg/dL (0.2-1.3); Blood Urea Nitrogen 17 mg/dL (9-20); Calcium 9.1 mg/dL (8.4-10.2); Carbon Dioxide 23 mmol/L (22-32); Chloride 106 mmol/L (98-107); Creatine Kinase 98 U/L (55-170); Estimated Glomerular Filt Rate > 60 mL/min (>60); Globulin 2.9 g/dL (1.7-4.1); Glucose 117 mg/dL (80-110); Lipase 53 U/L (23-300); Magnesium 2.1 mg/dL (1.6-2.3); Sodium 136 mmol/L (137-145); Total Protein 7.4 g/dL (6.3-8.2)
[2023-10-06 12:21] LABS: HEMOLYSIS 96 (0-50); Potassium 4.4 mmol/L (3.4-5.1)
--- NOTE | 2023-10-06 12:27 | DI.CT.S_ITS ---
PROCEDURE: CT ANGIO CHEST ABDOMEN PELVIS INDICATIONS: syncope with known ectasia of ascending thoracic aorta TECHNIQUE: Precontrast 5 mm thick sections acquired from the lung apices to the iliac crests. After the administration of intravenous contrast, 2.5 mm thick sections again acquired from the lung apices to the iliac crests. Maximum intensity projection (MIP) oblique sagittal and coronal reformats were then acquired. For radiation dose reduction, the following was used: automated exposure control. COMPARISON: [facility], CT, CT ANGIO CHEST ABDOMEN PELVIS, 07/15/2023, 8:10. FINDINGS: Image quality: Diagnostic Lungs and pleura: No dense airspace disease, pneumothorax, pleural effusion, or overtly suspicious pulmonary nodule. Scattered scarring and atelectasis are present. Mediastinum, heart, and esophagus: Possible small hiatal hernia and mild distal esophageal wall thickening. There are significant coronary calcifications. Overall similar appearance of the thoracic aorta measuring about 4.4 cm. No evidence of acute dissection. Atherosclerotic calcifications are present. No pathologic lymph nodes by size criteria Chest wall and thyroid: Unremarkable thyroid chest wall Liver: Unremarkable Gallbladder and biliary system: Absent, prominent biliary system again seen in the postsurgical state. Pancreas: No ductal dilation Spleen: Nonenlarged Adrenals: Mild thickening as before Kidneys: Parapelvic right renal cyst. No complicated or solid lesions requiring follow-up identified. No hydronephrosis Vessels and lymph nodes: No abdominal aortic aneurysm. The major mesenteric vessels appear patent. The renal arteries appear patent. There are mild atherosclerotic calcifications. No pathologic lymph nodes by size criteria. Bowel and peritoneum: Mild wall thickening versus artifact of under distention in the stomach. No small bowel obstruction. No pathologic ascites or drainable abscess. There are colonic diverticula. The appendix appears nondilated Body wall: Small fat containing right inguinal and umbilical hernias. Pelvis: Obscured by metallic artifact. Heterogeneous enlarged prostate is not well evaluated on this study. Possible medial hypertrophy at the bladder neck. Consider correlation with PSA and possible MRI if necessary. Mild bladder wall thickening may be due to chronic obstruction, correlate urinalysis Bones: There are degenerative changes, no acute or suspicious finding. IMPRESSION: Similar diameter thoracic aorta measuring up to 4.4 cm in the mid ascending portion. Significant coronary calcifications. Possible mild gastric wall thickening, representing gastritis or artifact of under distention. Other incidental findings above. No acute changes. Dictated by: Addy Jaeger M.D. on 10/06/2023 at 13:18 Approved by: Addy Jaeger M.D. on 10/06/2023 at 13:26
[2023-10-06 12:31] LABS: Troponin I < 0.012 ng/mL (0.01-0.034)
--- NOTE | 2023-10-06 12:49 | PC.NURSE ---
Repeat EKG being preformed when patient went into SVT again. Provider notified immediately. Vagal manuveurs preformed with no success. Diltiazem ordered. prior to IV push, pt HR decreased to 74 again. provider order to hold on Dilt. repeat EKG preformed during SVT and after. provider notified that patient's heart rate has been ranging from 70s to 100
[2023-10-06] MEDS: dilTIAZem 25 MG/5 ML SDV 10 MG IV (13:08)
[2023-10-06] MEDS: dilTIAZem CD 120 MG CAP PO (14:39)
== END 2023-10-06 14:49 | disposition home or self-care (01) ==
PROVIDERS: Emergency Medicine; Emergency Provider Emergency Medicine; PCP Family Medicine
DX: I47.10 Supraventricular tachycardia, unspecified (principal); R07.9 Chest pain, unspecified
CPT/HCPCS: 36415; 71045; 71275; 74174; 80053; 82550; 83690; 83735; 84484; 85025; 85610; 85730; 93005; 96374; 99284; Q9967

== ENCOUNTER → 2024-01-01 08:35 | Outpatient (CLI) | payer MEDICARE, OTHER, SELFPAY ==
[2024-01-01 09:59] LABS: Add Manual Diff / Slide Review NO; Basophils Absolute Auto 0 /uL (0-100); Basophils Percent Auto 0.5 % (0-2); Eosinophils Absolute Auto 300 /uL (0-450); Eosinophils Percent Auto 4.1 % (2-4); Hematocrit 43.7 % (41-53); Hemoglobin 15.1 g/dL (13.5-17.5); Lymphocytes Absolute Auto 1600 /uL (1100-4500); Lymphocytes Percent Auto 22.9 % (25-40); Mean Corpuscular HGB Conc 34.5 % (30-36); Mean Corpuscular Hemoglobin 29.9 PG (26-34); Mean Corpuscular Volume 86.6 fL (80-100); Monocytes Absolute Auto 600 /uL (0-900); Monocytes Percent Auto 8.6 % (3-14); Neutrophils Absolute Auto 4400 /uL (1500-7000); Neutrophils Percent Auto 63.9 % (50-75); Platelet Count 232 X10^3/uL (150-400); Red Blood Cell Count 5.04 X10^6/uL (4.5-5.9); Red Cell Distribution Width 13.8 % (11.6-14.8); White Blood Cell Count 6.9 X10^3/uL (4.5-11.0)
[2024-01-01 10:46] LABS: Vitamin D 25 Hydroxy (D3) 41.3 ng/mL (30.0-100.0)
[2024-01-01 10:58] LABS: Alanine Aminotransferase 26 IU/L (<50); Albumin 4.1 g/dL (3.5-5.0); Albumin Globulin Ratio 1.7 (1.0-2.8); Alkaline Phosphatase 69 U/L (38-126); Amylase 61 U/L (30-110); Aspartate Aminotransferase 32 IU/L (17-59); BUN Creatinine Ratio 14.5 (6-22); Bilirubin Total 0.7 mg/dL (0.2-1.3); Blood Urea Nitrogen 12 mg/dL (9-20); Calcium 9.1 mg/dL (8.4-10.2); Carbon Dioxide 20 mmol/L (22-32); Chloride 107 mmol/L (98-107); Cholesterol 135 mg/dL (140-199); Estimated Glomerular Filt Rate > 60 mL/min (>60); Globulin 2.4 g/dL (1.7-4.1); Glucose 94 mg/dL (80-110); HDL Cholesterol 45 mg/dL (40-60); HEMOLYSIS < 15 (0-50); LDL Cholesterol Calculated 68 mg/dL (<100); Lipase 55 U/L (23-300); Magnesium 2.1 mg/dL (1.6-2.3); Potassium 4.3 mmol/L (3.4-5.1); Sodium 136 mmol/L (137-145); Total Protein 6.5 g/dL (6.3-8.2); Triglycerides 108 mg/dL (35-150)
[2024-01-01 11:04] LABS: Prostate Specific Antigen Scrn 4.64 ng/mL (0.1-4.0)
[2024-01-01 11:11] LABS: Triiodothryronine T3 Uptake 34.8 % (23.5-40.5)
[2024-01-01 11:24] LABS: Thyroid Stimulating Hormone 3.27 uIU/mL (0.47-4.68)
[2024-01-01 23:52] LABS: T4 Total Thyroxine 5.85 ug/dL (5.5-11.0); T7 (Free Thyroxine Index) 2.04 (1.65-3.89)
[2024-01-02 21:04] LABS: Vitamin B12 572 pg/mL (239-931)
== END ==
PROVIDERS: PCP Family Medicine; Referring Provider Family Medicine; Visit Provider Family Medicine
DX: I10 Essential (primary) hypertension (principal); K86.3 Pseudocyst of pancreas; E03.9 Hypothyroidism, unspecified; I49.8 Other specified cardiac arrhythmias; E78.00 Pure hypercholesterolemia, unspecified; M12.89 Other specific arthropathies, not elsewhere classified, multiple sites; E55.9 Vitamin D deficiency, unspecified
CPT/HCPCS: 36415; 80053; 80061; 82150; 82306; 82607; 83690; 83735; 84436; 84443; 84479; 85025; G0103

== ENCOUNTER → 2024-08-30 08:04 | Outpatient (CLI) | payer MEDICARE, OTHER, SELFPAY ==
[2024-08-30 09:34] LABS: Add Manual Diff / Slide Review NO; Basophils Absolute Auto 0 /uL (0-100); Basophils Percent Auto 0.8 % (0-2); Eosinophils Absolute Auto 300 /uL (0-450); Hematocrit 43.9 % (41-53); Hemoglobin 15.4 g/dL (13.5-17.5); Lymphocytes Absolute Auto 1500 /uL (1100-4500); Lymphocytes Percent Auto 24.4 % (25-40); Mean Corpuscular HGB Conc 35.1 % (30-36); Mean Corpuscular Hemoglobin 30.5 PG (26-34); Monocytes Absolute Auto 500 /uL (0-900); Monocytes Percent Auto 8.5 % (3-14); Neutrophils Absolute Auto 3700 /uL (1500-7000); Neutrophils Percent Auto 61.3 % (50-75); Platelet Count 225 X10^3/uL (150-400); Red Blood Cell Count 5.04 X10^6/uL (4.5-5.9); Red Cell Distribution Width 14.1 % (11.6-14.8)
[2024-08-30 10:25] LABS: Alanine Aminotransferase 24 IU/L (<50); Albumin 4.2 g/dL (3.5-5.0); Albumin Globulin Ratio 1.9 (1.0-2.8); Alkaline Phosphatase 61 U/L (38-126); Aspartate Aminotransferase 32 IU/L (17-59); BUN Creatinine Ratio 14.9 (6-22); Bilirubin Total 0.7 mg/dL (0.2-1.3); Blood Urea Nitrogen 13 mg/dL (9-20); Calcium 9.1 mg/dL (8.4-10.2); Carbon Dioxide 22 mmol/L (22-32); Chloride 104 mmol/L (98-107); Cholesterol 134 mg/dL (140-199); Estimated Glomerular Filt Rate > 60 mL/min (>60); Globulin 2.2 g/dL (1.7-4.1); Glucose 89 mg/dL (70-99); HDL Cholesterol 42 mg/dL (40-60); HEMOLYSIS < 15 (0-50); LDL Cholesterol Calculated 75 mg/dL (<100); Potassium 4.3 mmol/L (3.4-5.1); Sodium 136 mmol/L (137-145); Total Protein 6.4 g/dL (6.3-8.2); Triglycerides 84 mg/dL (35-150)
[2024-08-30 10:36] LABS: Vitamin D 25 Hydroxy (D3) 38.5 ng/mL (30.0-100.0)
[2024-08-30 10:46] LABS: Thyroid Stimulating Hormone 3.67 uIU/mL (0.47-4.68)
[2024-08-30 10:48] LABS: Prostate Specific Antigen 4.43 ng/mL (0.10-4.00)
== END ==
PROVIDERS: PCP Family Medicine; Referring Provider Family Medicine; Visit Provider Family Medicine
DX: E03.9 Hypothyroidism, unspecified (principal); R97.20 Elevated prostate specific antigen [PSA]; E61.2 Magnesium deficiency; E78.00 Pure hypercholesterolemia, unspecified; I49.8 Other specified cardiac arrhythmias; I70.0 Atherosclerosis of aorta; E55.9 Vitamin D deficiency, unspecified
CPT/HCPCS: 36415; 80053; 80061; 82306; 83735; 84153; 84443; 85025

== ENCOUNTER → 2024-10-10 08:01 | Outpatient (CLI) | payer MEDICARE, OTHER, SELFPAY ==
--- NOTE | 2024-10-10 08:02 | DI.MRI.S_ITS ---
PROCEDURE: MR PELVIC PROSTATE PROTOCOL INDICATIONS: 79 y/o M w/ an elevated PSA, please eval TECHNIQUE: Coronal HASTE, axial T1 FSE with fat saturation, 3-plane nonbreath-hold T2 FSE. After the administration of contrast, dynamic axial, delayed axial and coronal VIBE or 2-D FLASH with fat saturation through the pelvis. Diffusion weighted imaging and ADC was performed. COMPARISON: None. FINDINGS: Image quality: Diffusion weighted and dynamic contrast enhanced images are diagnostic. Prostate: Gland size is 4.8 x 3.9 x 7.3 cm; ellipsoid gland volume is 71 mL. PSA density of 0.6, not suspicious. Hypertrophy of the transition zone with encapsulated and partially encapsulated nodules. Genitourinary system: Bladder wall is trabeculated. Distal ureters are non distended. Bowel and peritoneum: No pathologic free pelvic fluid. Inferior colon and small bowel loops are normal in caliber. Colonic diverticulosis without evidence of diverticulitis. Nodes and vessels: No pelvic or inguinal adenopathy by size criteria. Iliac vessels are normal in caliber. Soft tissues: Small right indirect inguinal hernia containing fat. Bones: Marrow demonstrates normal overall signal, without lesions to suggest metastases. IMPRESSION: Prostatomegaly with transition zone hypertrophy. No PI-RADS 3 through 5 observations. No pelvic lymphadenopathy by size criteria. No aggressive osseous abnormality. Dictated by: Warren Okeefe M.D. on 10/11/2024 at 10:13 Approved by: Warren Okeefe M.D. on 10/11/2024 at 10:25
== END ==
PROVIDERS: PCP Family Medicine; Referring Provider Urology; Visit Provider Urology
DX: N40.0 Benign prostatic hyperplasia without lower urinary tract symptoms (principal); R97.20 Elevated prostate specific antigen [PSA]; N32.89 Other specified disorders of bladder; K57.90 Diverticulosis of intestine, part unspecified, without perforation or abscess without bleeding; K40.90 Unilateral inguinal hernia, without obstruction or gangrene, not specified as recurrent
CPT/HCPCS: 72197; A9579

== ENCOUNTER → 2025-04-07 07:00 | Outpatient (CLI) | payer MEDICARE, OTHER, SELFPAY ==
[2025-04-07 07:48] LABS: Add Manual Diff / Slide Review NO; Hematocrit 44.1 % (41-53); Hemoglobin 15.4 g/dL (13.5-17.5); Lymphocytes Absolute Auto 1800 /uL (1100-4500); Mean Corpuscular HGB Conc 34.9 % (30-36); Mean Corpuscular Hemoglobin 29.9 PG (26-34); Mean Corpuscular Volume 85.5 fL (80-100); Platelet Count 216 X10^3/uL (150-400)
[2025-04-07 08:27] LABS: Alanine Aminotransferase 26 IU/L (<50); Albumin 3.9 g/dL (3.5-5.0); Albumin Globulin Ratio 1.5 (1.0-2.8); Alkaline Phosphatase 59 U/L (38-126); Amylase 62 U/L (30-110); Blood Urea Nitrogen 10 mg/dL (9-20); Calcium 9.0 mg/dL (8.4-10.2); Carbon Dioxide 25 mmol/L (22-32); Chloride 105 mmol/L (98-107); Cholesterol 122 mg/dL (140-199); Estimated Glomerular Filt Rate > 60 mL/min (>60); Globulin 2.6 g/dL (1.7-4.1); Glucose 102 mg/dL (70-99); HDL Cholesterol 45 mg/dL (40-60); HEMOLYSIS < 15 (0-50); Lipase 66 U/L (23-300); Potassium 4.3 mmol/L (3.4-5.1); Sodium 137 mmol/L (137-145); Total Protein 6.5 g/dL (6.3-8.2); Triglycerides 72 mg/dL (35-150)
[2025-04-07 08:55] LABS: Prostate Specific Antigen 5.88 ng/mL (0.10-4.00)
[2025-04-07 08:58] LABS: Thyroid Stimulating Hormone 4.00 uIU/mL (0.47-4.68)
== END ==
PROVIDERS: PCP Family Medicine; Referring Provider Family Medicine; Visit Provider Family Medicine
DX: Z13.0 Encounter for screening for diseases of the blood and blood-forming organs and certain disorders involving the immune mechanism (principal); E03.9 Hypothyroidism, unspecified; R97.20 Elevated prostate specific antigen [PSA]
CPT/HCPCS: 36415; 80053; 80061; 82150; 83690; 84153; 84443; 85025